=== PATIENT | female | born 1955 | race Caucasian/White ===

== ENCOUNTER → 2022-04-17 11:06 | Outpatient (CLI) | payer MEDICARE, SELFPAY ==
--- NOTE | 2022-04-17 11:06 | MM_ITS ---
PROCEDURE INFORMATION: Exam: MG Bilateral Screening 3D Mammography Exam date and time: 04/17/2022 11:05 AM Age: 66 years old Clinical indication: Screening. Personal history of lymphoma. A maternal aunt had breast cancer. TECHNIQUE: Imaging protocol: Bilateral Screening tomosynthesis and 2D mammography including computer-aided detection (CAD) when performed. COMPARISON: 1. MG DMSB DIG MAMM-SCREEN MARTÍNEZ W/CAD 02/21/2017 4:39 PM 2. MG DMSB DIG MAMM-SCREEN MARTÍNEZ 06/06/2015 10:26 AM 3. MG DMSB DIG MAMM-SCREEN MARTÍNEZ 04/21/2014 4:04 PM 4. MG DMSB DIG MAMM-SCREEN MARTÍNEZ 01/28/2013 4:57 PM FINDINGS: MAMMOGRAPHY: Breast composition: There are scattered areas of fibroglandular density. Mass: None. Architectural distortion: None. Calcifications: No suspicious calcifications. Asymmetric density: None. Skin thickening: None. Axillary adenopathy: None. IMPRESSION: No mammographic evidence of malignancy. Annual screening is recommended unless otherwise clinically indicated. ASSESSMENT: BI-RADS Category 1: Negative
== END ==
PROVIDERS: PCP Nurse Practitioner Family; Visit Provider Nurse Practitioner Obstetrics & Gynecology
DX: Z12.31 Encounter for screening mammogram for malignant neoplasm of breast (principal)
CPT/HCPCS: 77063; 77067

== ENCOUNTER → 2022-07-03 09:36 | Outpatient (CLI) | payer MEDICARE, SELFPAY ==
--- NOTE | 2022-07-03 09:41 | XR_ITS ---
FINAL REPORT CLINICAL HISTORY: COUGH,SPUTUM, pre op for left elbow surgery FINDINGS: TWO-VIEW CHEST Two views of the chest were obtained. The heart size and pulmonary vascularity are within normal limits. The mediastinum is normal. There are changes of emphysema. No acute pulmonary abnormality is identified. There is no pneumothorax. The bony thorax is intact. IMPRESSION: No acute process. Reviewed, Interpreted and Dictated by [place] MD Transcribed by Marie Linn Authenticated and [facility]
== END ==
PROVIDERS: PCP Internal Medicine; Visit Provider Internal Medicine
DX: R05.8 Other specified cough (principal)
CPT/HCPCS: 71046

== ENCOUNTER → 2022-12-19 12:41 | Outpatient (CLI) | payer MEDICARE, SELFPAY | PROVIDERS: PCP Internal Medicine Adolescent Medicine; Visit Provider Internal Medicine Pulmonary Disease | DX: R06.09 Other forms of dyspnea (principal) | CPT/HCPCS: 94060; 94618; 94726; 94729 ==

== ENCOUNTER 2023-05-18 19:44 | Emergency (ER) | payer MEDICARE, SELFPAY ==
[2023-05-18] VITALS (7 sets, daily range): BP systolic 112–136; BP diastolic 50–67; PULSE 70–130; RESP 14–20; TEMP 36.7–39.4; O2SAT 95–98; BMI 24.7
--- NOTE | 2023-05-18 20:05 | PC.NURSE ---
Covid and Flu swab obtained
--- NOTE | 2023-05-18 20:16 | CT_ITS ---
PROCEDURE INFORMATION: Exam: CT Abdomen And Pelvis With Contrast Exam date and time: 05/18/2023 8:38 PM Age: 67 years old Clinical indication: Abdominal pain; Additional info: Hematuria, backpain TECHNIQUE: Imaging protocol: Computed tomography of the abdomen and pelvis with contrast. Radiation optimization: All CT scans at this facility use at least one of these dose optimization techniques: automated exposure control; mA and/or kV adjustment per patient size (includes targeted exams where dose is matched to clinical indication); or iterative reconstruction. Contrast material: ISOVUE; Contrast volume: 75 ml; Contrast route: IV; REPORTING DATA: Count of CT and Cardiac NM exams in prior 12 months: This patient has received 0 known CTs and 0 known cardiac nuclear medicine studies in the 12 months prior to the current study. COMPARISON: CR XR CHEST 2V 07/03/2022 10:03 AM FINDINGS: Lungs: Mild atelectasis at the lung bases. Diaphragm: Tiny hiatal hernia. Liver: Normal. No mass. Gallbladder and bile ducts: Normal. No calcified stones. No ductal dilation. Pancreas: Mild fluid in the upper abdomen is predominantly adjacent to the pancreatic tail and is suspicious for acute pancreatitis. No evidence of pancreatic necrosis. Spleen: Normal. No splenomegaly. Adrenal glands: Normal. No mass. Kidneys and ureters: Punctate bilateral renal calyceal calculi measuring up to 0.2 cm. 2.4 cm simple cyst arising from the lateral mid left kidney. Subcentimeter low-density lesion in the left upper pole is too small to characterize. No hydronephrosis. No ureteral calculi. Stomach and bowel: Unremarkable. No obstruction. No mucosal thickening. Appendix: No evidence of appendicitis. Intraperitoneal space: Unremarkable. No free air. No significant fluid collection. Vasculature: Mild atherosclerotic disease without aneurysm. Lymph nodes: Unremarkable. No enlarged lymph nodes. Urinary bladder: Unremarkable as visualized. Reproductive: Unremarkable as visualized. Bones/joints: Hrod-br-uwhrfnad L5-S1 degenerative disc disease. Soft tissues: Unremarkable. IMPRESSION: 1. Mild fluid in the upper abdomen is predominantly adjacent to the pancreatic tail and is suspicious for acute pancreatitis. No evidence of pancreatic necrosis. 2. Punctate intrarenal calculi. No ureteral calculi or hydronephrosis.
--- NOTE | 2023-05-18 20:19 | HMH.EDGENADL ---
Discharge Plan Disposition Patient Disposition: Home, Self-Care Chief Complaint: Fever Prescriptions Prescriptions: No Action multivitamin Tablet 1 tab PO DAILY budesonide-formoterol [Symbicort] 160-4.5 mcg/actuation HFA aerosol inhaler 2 puff inhalation BID 90 Days Qty: 10.2 2RF azelastine 137 mcg (0.1 %) aerosol,spray 2 spray intranasal HS PRN (Reason: allergic symptoms) 90 Days Qty: 30 2RF Rx Instructions: administer into each nostril fluticasone propionate [Flonase Allergy Relief] 50 mcg/actuation spray,suspension 2 spray intranasal DAILY 90 Days Qty: 16 2RF Rx Instructions: administer into each nostril budesonide-formoterol [Symbicort] 160-4.5 mcg/actuation HFA aerosol inhaler 2 puff inhalation BID Brilinta 90 mg tablet 90 mg PO BID albuterol sulfate 90 mcg/actuation HFA aerosol inhaler 2 inh inhalation Q6H PRN (Reason: shortness of breath or wheezing) 90 Days Qty: 8.5 1RF doxycycline hyclate 100 mg capsule 100 mg PO BID 5 Days Qty: 10 0RF Referrals Follow up/Referrals: Saskia Marroquin APRN [Primary Care Provider] - See instructions Clinical Impressions Clinical Impression: Influenza A Discharge ED Provider: John Strauss General Adult HPI General Chief complaint: Fever Stated complaint: chills, back pain Time Seen by Provider: 05/18/23 19:47 Mode of Arrival: Ambulatory Source of Information: Spouse Limitations: No Limitations Description of Symptoms (Recalled from ER Triage Doc. by RN): pt had a bladder infection a month ago but was never properly treated [place], pt states she took 4 days worth of cipro and is now worried the infection has come back worse. over the last few days she has noted a fever and worsening back pain History of Present Illness HPI narrative: Patient is a 67-year-old female past medical history of ACS status post stenting, recurrent UTIs who presents emergency department for evaluation of low back pain. History is obtained by patient at bedside. Approximate 1 month ago patient was diagnosed urinary tract infection which was responsive to oral antibiotics. She was recently on a trip to [place] approximately 2 weeks ago where she had symptoms of dysuria and hematuria for 7 days, unfortunately patient was unable to access healthcare in [place] and upon return took ciprofloxacin for which symptoms have been refractory. She has now developed low back pain across her lumbar region which is associated with her hematuria. No significant frontal abdominal pain. Due to persistent symptoms she presents here for continued evaluation. Related Data Home Medications Medication Instructions Recorded Confirmed multivitamin 1 tab PO DAILY 05/18/21 04/22/23 budesonide-formoterol HFA 160 2 puff inhalation BID 10/30/22 04/22/23 mcg-4.5 mcg/actuation aerosol inhaler (Symbicort) ticagrelor 90 mg tablet (Brilinta) 90 mg PO BID 10/30/22 04/22/23 Previous Rx's Medication Instructions Recorded albuterol sulfate 90 mcg/actuation 2 inh inhalation Q6H PRN shortness 10/30/22 aerosol inhaler of breath or wheezing 90 days #8.5 grams azelastine 137 mcg (0.1 %) nasal 2 spray intranasal HS PRN allergic 04/22/23 spray aerosol symptoms 90 days #30 mL budesonide-formoterol HFA 160 2 puff inhalation BID 90 days 04/22/23 mcg-4.5 mcg/actuation aerosol #10.2 grams inhaler (Symbicort) fluticasone propionate 50 2 spray intranasal DAILY 90 days 04/22/23 mcg/actuation nasal #16 grams spray,suspension (Flonase Allergy Relief) doxycycline hyclate 100 mg capsule 100 mg PO BID 5 days #10 caps 05/05/23 Allergies Allergy/AdvReac Type Severity Reaction Status Date / Time No Known Allergies Allergy Verified 04/22/23 10:15 [facility] Disclaimer: The information contained in this section may have been updated after the patient was seen, as this information can be updated by other users. Medical History (R
[2023-05-18 20:22] LABS: Coronavirus 19, PCR Not Detected (NotDetected); Influenza B, PCR Not Detected (NotDetected)
[2023-05-18 20:22] LABS: Microscopic, Urine URINE MICROSCOPIC (MICROSCOPIC)
[2023-05-18 20:24] LABS: Appearance,Urine CLEAR (Clear); Bilirubin,Urine Negative (Negative); Blood, Urine TRACE-I (Negative); Color,Urine YELLOW (Yellow); Glucose,Urine (UA) Negative (Negative); Ketones,Urine Negative (Negative); Leukocyte Esterase,Urine TRACE (Negative); Nitrate,Urine Negative (Negative); PH,Urine 6.5 (5.0-8.5); Protein,Urine Negative (Negative); Specific Gravity, Urine 1.015 (1.005-1.030); Urobilinogen,Urine 0.2 EU/dl (0.2)
[2023-05-18 20:26] LABS: Basophils % 0.6 % (0.1-2.0); Eosinophils # 0.2 K/mm3 (0.0-0.4); Eosinophils % 2.7 % (0.1-12.0); Hematocrit 39.1 % (37.0-47.0); Hemoglobin 13.3 g/dL (12.2-16.2); Lymphocytes % 15.4 % (10-50); Mean Corpuscular HGB Conc 33.9 g/dL (31.8-35.4); Mean Corpuscular Hemoglobin 31.7 pg (27.0-31.2); Mean Corpuscular Volume 93.4 fl (81-99); Mean Platelet Volume 8.8 fl (7.4-10.4); Monocytes # 0.5 K/mm3 (0.1-1.0); Monocytes % 7.2 % (1.7-9.3); Neutrophils # 4.8 K/mm3 (1.8-7.8); Neutrophils % 74.1 % (37.0-80.0); Platelet Count 167 K/mm3 (142-424); Red Blood Count 4.19 M/mm3 (4.20-5.40); Red Cell Distribution Width 14.4 % (11.5-17.5); White Blood Count 6.5 K/mm3 (4.8-10.8)
[2023-05-18 20:27] LABS: Chloride 103 mmol/L (98-107); Potassium 4.1 mmoL/L (3.5-5.1); Sodium 136 mmol/L (136-145)
[2023-05-18 20:30] LABS: Alanine Aminotransferase 30 U/L (12-78); Albumin Level 4.3 g/dl (3.5-5.0); Albumin/Globulin Ratio 1.6 (1.1-1.8); Alkaline Phosphatase 82 U/L (38-126); Anion Gap 9.1 mEq/L (5-15); Aspartate Amino Transferase 41 U/L (14-36); Bilirubin,Total 0.3 mg/dl (0.2-1.3); Blood Urea Nitrogen 11 mg/dl (7-17); Calcium 8.6 mg/dl (8.4-10.2); Carbon Dioxide 28 mmol/L (22.0-30.0); Creatinine Clearance Estimated 59 mL/min (50-200); Estimated Glomerular Filt Rate 84 ml/min (>60); GFR (African American) 101 ML/MIN (>60); Globulin 2.7 g/dL (1.3-3.2); Glucose 119 mg/dl (74-100)
[2023-05-18 20:31] LABS: Lactic Acid 1.1 mmol/L (0.7-2.1)
[2023-05-18 20:42] LABS: Bacteria,Urine Trace /lpf; Squamous Epithelial Cell,Urine Occasional #/hpf (0-5)
[2023-05-18 20:45] LABS: Influenza A, PCR Detected (NotDetected)
--- NOTE | 2023-05-18 20:49 | ECG_ITS ---
APPROVED REPORT Exam: Resting ECG HR:123 bpm ECG Measurements Heart Rate 123 AXES AR 151 P 82 QRSd 91 QRS 77 QT 337 T 68 QTc 410 Conclusion SINUS TACHYCARDIA MINIMAL ST DEPRESSION [0.025+ mV ST DEPRESSION] ABNORMAL RHYTHM ECG UNCONFIRMED REPORT Electronically signed by : Solo Guy MD 05/19/2023 17:28:04
[2023-05-18 21:23] LABS: Troponin I < 0.01 ng/ml (0.00-0.034)
[2023-05-18 22:02] LABS: Lipase 46 U/L (23-300)
== END 2023-05-18 22:30 | disposition home or self-care (01) ==
PROVIDERS: Emergency Provider Emergency Medicine; PCP Nurse Practitioner Family
DX: J10.2 Influenza due to other identified influenza virus with gastrointestinal manifestations (principal); R50.9 Fever, unspecified; R00.0 Tachycardia, unspecified; M54.59 Other low back pain; R93.5 Abnormal findings on diagnostic imaging of other abdominal regions, including retroperitoneum; J45.909 Unspecified asthma, uncomplicated; R30.0 Dysuria
CPT/HCPCS: 74177; 80053; 81001; 83605; 83690; 84484; 85025; 87040; 87636; 93005; 96361; 96365; 96375; 99285; J0131; J2543; Q9967

== ENCOUNTER 2023-10-06 11:37 | Outpatient (CLI) | payer MEDICARE, SELFPAY ==
[2023-10-06 12:33] LABS: Anion Gap 8.2 mEq/L (5-15); Blood Urea Nitrogen 17 mg/dl (7-17); Carbon Dioxide 31 mmol/L (22.0-30.0); Chloride 105 mmol/L (98-107); Estimated Glomerular Filt Rate 83 ml/min (>60); GFR (African American) 101 ML/MIN (>60); Glucose 86 mg/dl (74-100); Potassium 5.2 mmoL/L (3.5-5.1); Sodium 139 mmol/L (136-145)
== END 2023-10-06 23:59 ==
LOC: LAB 11:39
PROVIDERS: PCP Internal Medicine Adolescent Medicine; Visit Provider Nurse Practitioner
DX: I50.22 Chronic systolic (congestive) heart failure (principal)
CPT/HCPCS: 36415; 80048

== ENCOUNTER 2023-12-03 14:20 | Outpatient (CLI) | payer MEDICARE, SELFPAY ==
--- NOTE | 2023-12-03 14:26 | MM_ITS ---
PROCEDURE INFORMATION: Exam: MG Bilateral Screening 3D Mammography Exam date and time: 12/03/2023 2:16 PM Age: 68 years old Clinical indication: Screening mammogram TECHNIQUE: Imaging protocol: Bilateral Screening tomosynthesis and 2D mammography including computer-aided detection (CAD) when performed. COMPARISON: 1. MG MM DIG SCREENING MAMM BI W/CAD 04/17/2022 11:05 AM 2. MG DMSB DIG MAMM-SCREEN MARTÍNEZ W/CAD 02/21/2017 4:39 PM 3. MG DMSB DIG MAMM-SCREEN MARTÍNEZ 06/06/2015 10:26 AM 4. MG DMSB DIG MAMM-SCREEN MARTÍNEZ 04/21/2014 4:04 PM FINDINGS: MAMMOGRAPHY: Breast composition: There are scattered areas of fibroglandular density. Mass: None. Architectural distortion: No new or suspicious architectural distortion. Calcifications: No new or suspicious calcifications are present Asymmetric density: No new or suspicious asymmetric density is present Skin thickening: None. Axillary adenopathy: None. IMPRESSION: No mammographic evidence of malignancy. Recommend annual screening mammography unless otherwise clinically indicated. ASSESSMENT: BI-RADS category 1: Negative.
--- NOTE | 2023-12-03 14:27 | XR_ITS ---
FINAL REPORT TECHNIQUE: Bone mineral density was calculated of the lumbar spine and hip. CLINICAL HISTORY: SCREENING FINDINGS: Using L1-4, the bone mineral density of the spine is 0.812 g/cm2, corresponding to T-score of -2.2. Using the left hip, the bone mineral density of the femoral neck is 0.697 g/cm2, corresponding to a T-score of -2.0. Using the right hip, the bone mineral density of the femoral neck is 0.669 g/cm2, corresponding to a T-score of -2.2. NOTE: T-score: Standard deviation compared with peak bone mass of young adult mean. *Following the recommendations of the International Society of Bone densitometry, classification of hip BMD is based on the lower of two T-scores; total hip or femoral neck. IMPRESSION: Diminished bone mineral density of the lumbar spine and hips consistent with low bone density. FRAX data reports fracture risk of 9.9% for major osteoporotic fracture and 1.3% for hip fracture. Reviewed, Interpreted and Dictated by Bienvenido Moses III, MD Transcribed by Geovanna Castillo Authenticated and [facility]
== END 2023-12-03 23:59 | disposition home or self-care (01) ==
LOC: RAD 14:21
PROVIDERS: PCP Nurse Practitioner Family; Visit Provider Nurse Practitioner Family
DX: Z12.31 Encounter for screening mammogram for malignant neoplasm of breast (principal); Z78.0 Asymptomatic menopausal state; M85.9 Disorder of bone density and structure, unspecified
CPT/HCPCS: 77063; 77067; 77080

== ENCOUNTER 2024-02-26 11:15 | Outpatient (CLI) | payer MEDICARE, SELFPAY ==
--- NOTE | 2024-02-26 11:23 | XR_ITS ---
FINAL REPORT CLINICAL HISTORY: ACUTE PAIN OF RIGHT FOOT COMPARISON: None FINDINGS: RIGHT FOOT Three views demonstrate no acute fracture or dislocation. The joint spaces appear normal. No acute soft tissue abnormality is seen. IMPRESSION: No acute process. Reviewed, Interpreted and Dictated by Santiago Woods MD Transcribed by Sariah Allen Authenticated and [facility]
--- NOTE | 2024-02-26 11:23 | XR_ITS ---
FINAL REPORT CLINICAL HISTORY: ACUTE PAIN IN RIGHT ANKLE COMPARISON: None FINDINGS: RIGHT ANKLE 3 views of the right ankle were obtained. There is no acute fracture or dislocation. The mortise is intact. Visualized joint spaces are normally aligned. Soft tissue swelling is noted about the ankle. IMPRESSION: Soft tissue swelling without acute bony abnormality. Reviewed, Interpreted and Dictated by Santiago Woods MD Transcribed by Sariah Allen Authenticated and [facility]
== END 2024-02-26 23:59 | disposition home or self-care (01) ==
LOC: RAD 11:17
PROVIDERS: PCP Internal Medicine Adolescent Medicine; Visit Provider Nurse Practitioner Family
DX: M79.671 Pain in right foot (principal); M25.571 Pain in right ankle and joints of right foot
CPT/HCPCS: 73610; 73630

== ENCOUNTER 2024-12-20 07:31 | Outpatient (CLI) | payer MEDICARE, SELFPAY ==
--- OUTSIDE RECORDS SUMMARY | 2024-10-02 17:30 | XMS_ITS ---
Author Organization [facility] Address [address] [facility] [address] [place] [address] Care Team Providers Care Diabetes Specialist Name Role Phone Shy Lu Primary Care Provider [phone] Shaka Miguel Unavailable Unavailable Migration, Provider Unavailable Unavailable REASON FOR VISIT [facility] To [facility] Conversion Encounter Medications Medication SIG (Take, Route, Frequency, Duration) Notes Start Date End Date Status Montelukast Sodium 10 MG 1 tab(s) orally once a day for 90 days 09/23/2022 Active Aspirin 81 MG 1 tab(s) orally once a day Active Farxiga 10 MG 1 tab(s) orally once a day Active Spironolactone 25 MG 1 tab(s) orally onc e a day Active Entresto 49-51 MG 1 tab(s) orally 2 ti mes a day Active Doxycycline Monohydrate 100 MG 1 cap(s) orally 2 times a day for 7 days 07/13/2024 Active Symbicort 160-4.5 MCG/ACT 2 puff(s) inha led 2 times a day for 30 days 09/23/2022 Active Encounters Encounter Location Date Provider Diagnosis [facility] [address] [facility] [address] [place] [address] 10/02/2024 Provider Migration Moderate persistent asthma with exacerbation J45.41 Assessments Encounter Date Diagnosis (ICD Code) Assessment Notes Treatment Notes Treatment Clinical Notes Section Notes 10/02/2024 Moderate persistent asthma with exacerbation (ICD-10 - J45.41) Plan Of Treatment Medication Medication Name Sig Start Date Stop Date Notes Doxycycline Monohydrate 100 MG 1 cap(s) orally 2 times a day for 7 days 07/13/2024 Progress Notes * Cortes KLEINAdoinsOB: 6 (69 yo F)Acc No.[id number]:10/02/2024 Patient: Robson VILLEDA Provider: Zarina Patino :1955 A ge:69 Y S ex:Female Date:10/02/2024 Address:[address] [place] [address] [id number] Pcp:Shy Lu Subjective: * Chief Complaints: * 1 . Multum To Medispan Conversion Encounter. * Medical History: * Medications: T aking Entresto 49-51 MG Tablet 1 tab(s) orally 2 times a day , Taking Spironolactone 25 MG Tablet 1 tab(s) orally once a day , Taking Farxiga 10 MG Tablet 1 tab(s) orally once a day , Taking Aspirin 81 MG Tablet Delayed Release 1 tab(s) orally once a day , Taking Montelukast Sodium 10 MG Tablet 1 tab(s) orally once a day , Taking Symbicort 160-4.5 MCG/ACT Aerosol 2 puff(s) inhaled 2 times a day Objective: * Vitals: Assessment: * Assessment: 1. M oderate persistent asthma with exacerbation - J45.41 (Primary) Plan: * Treatment: * * Electronic signature of Prov ider Migration on 12/20/2024 at 07:34 AM EDT Sign off status: Pending * Provider: Zarina iniguez Migration Date: 0 10/02/2024 Generated for Jorge hartley/Dayana/Annette on: 0 12/20/2024 07:34 AM EDT
--- NOTE | 2024-12-20 07:33 | CT_ITS ---
FINAL REPORT TECHNIQUE: IV contrast enhanced exam This study was performed with techniques to keep radiation doses as low as reasonably achievable, (ALARA). Individualized dose reduction techniques using automated exposure control or adjustment of mA and/or kV according to the patient''s size were employed. CLINICAL HISTORY: B-CELL LYMPHOMA OF LYMPH NODES COMPARISON: 05/19/2023 FINDINGS: Abdomen: The gallbladder is unremarkable. Liver has an unremarkable CT appearance. Spleen is at the upper limits of normal in size but stable at 11.5 cm. There are tiny, nonobstructing bilateral renal stones. A stable, exophytic left renal cyst is seen. Hypodensities are present posterior to the pancreatic body, similar to prior exam. These have an appearance most consistent with microcysts. There is no pancreatic parenchymal lesion. Remaining solid abdominal organs are without acute abnormality. No bowel obstruction or fluid collection is seen. Pelvis: The appendix is not visualized. Pelvic bowel loops are unremarkable. Uterus is normal for patient's age. No fluid collection or adenopathy is seen. IMPRESSION: No findings to indicate active disease related to lymphoma. Small cystic areas along the celiac axis and pancreatic body which are stable. Although of uncertain etiology, these are considered benign based on stability. Reviewed, Interpreted and Dictated by [place] MD Transcribed by Gaby Palomino Authenticated and [facility]
--- OUTSIDE RECORDS SUMMARY | 2024-12-20 07:35 | XMS_ITS | Clinical Summary ---
Author Organization [facility] Address [address] [place] [address] Care Team Providers Care Esthetics Instructor Name Role Phone Shirley Hernandez MD Unavailable [phone] Solo Guy MD Primary Care Provider [phone] Allergies Active Allergy Reactions Criticality Noted Date Comments Statins Other - please document in the comment field Low 06/11/2023 Pain , cramping Took atorvastatin, rosuvastatin Medications aspirin 81 MG EC tablet Take 1 tablet (81 mg) by mouth 1 (one) time each day. Active Symbicort 160-4.5 MCG/ACT inhaler Inhale 2 puffs 2 (two) times a day. Active fluticasone (Flonase) 50 MCG/ACT nasal spray Administer 2 sprays into each nostril if needed. 4 Active dapagliflozin (Farxiga) 10 MG tablet Take 1 tablet (10 mg) by mouth daily. 90 tablet 3 5 Active sacubitril-vals sameer (Entresto) 49-51 MG tablet Take 1 tablet by mouth 2 (two) times a day. 180 tablet 3 5 08/26/19 26 Active azelastine (Astelin) 0.1 % nasal spray USE 2 SPRAYS in each nostril AT BEDTIME NEEDED FOR allergic symptoms 4 Active metoprolol succinate XL (Toprol-XL) 25 MG 24 hr tablet Take 1 tablet by mouth daily. 90 tablet 3 5 Active spironolactone (Aldactone) 25 MG tablet Take 1 tablet by mouth daily. 90 tablet 3 5 Active Active Problems Problem Noted Date Diagnosed Date Cardiomyopathy, ischemic 11/05/2024 Myalgia due to statin 11/05/2024 Diffuse large B-cell lymphom a of lymph nodes of multiple regions 12/03/2022 Encounters Date Type Department Care Team Description 09/22/2024 Results Follow-Up [facility] [address] [place] [address] Nila Warner APRN 09/21/2024 3:20 PM EDT Office Visit [facility] [address] [facility], [address] [place] [address] Nila Warner APRN Chronic systolic HF (heart failure) (CMS/HCC) (Primary Dx); Coronary artery disease involving [place] coronary artery of [place] heart without angina pectoris 09/21/2024 Travel 09/20/2024 Telephone [facility] [address] [place] [address] Nila Warner APRN from Last 3 Months Social History Tobacco Use Types Packs/Day Years Used Date Smoking Tobacco: Never Smokeless Tobacco: Never Tobacco Cessation:Counseling Given: Not Answered Alcohol Use Standard Drinks/Week Comments Yes 1 (1 standard drink = 0.6 oz pur e alcohol) PHQ-2 Answer Date Recorded Patient Health Questionnaire-2 Score 0 09/21/2024 PHQ-9 Answer Date Recorded Patient Health Questionnaire-9 Score 0 09/21/2024 Comments No Sex and Gender Information Value Date Recorded Sex Assigned at Not on file Legal Sex Female 7:54 PM EDT Gender Identity Not on file Sexual Orientation Not on file Last Filed Vital Signs Vital Sign Reading Time Taken Comments Blood Pressure 118/74 09/21/2024 2:58 PM EDT Pulse 77 09/21/2024 2:58 PM EDT Temperature 36.5 C (97.7 F) 09/18/2023 10:49 PM EDT Respiratory Rate 18 09/18/2023 10:4 9 PM EDT Oxygen Saturation 95% 09/21/2024 2:58 PM EDT Inhaled Oxygen Concentration - - Weight 75.2 kg (165 lb 12.6 oz) 09/21/2024 2:58 PM EDT Height 165.1 cm (5' 5 ) 09/21/2024 2:58 PM EDT Body Mass Index 27.59 09/21/2024 2:58 PM EDT Plan of Treatment Upcoming Encounters Date Type Department Care Team (Late st Contact Info) Description 02/01/2025 3:20 PM EDT Office Visit [facility] [address] [facility], [address] [place] [address] Nila Warner, STATEMENT PROCESSOR [address] [place] [address] Health Maintenance Due Date Last Done Comments [facility]-Bone Density Scan 1955 [facility]-Medicare Annual Wellness (AWV) 1955 [facility]-/Child/Adol SDOH Screenings 1955 [id number]-24 Vaccine (#1) 1961 [facility]- SDOH Screenings 1974 [facility]-Adult SDOH Screenings 1974 [facility]-DTaP,Tdap,and Td Vaccines (1 - Tdap) 1975 [facility]-Pneumococcal Vaccine: 50+ Years (1 of 2 - PCV) 1975 [facility]-Zoster Vaccines (1 of 2) 1975 CT Colonography 2001 Colonoscopy 2001 FIT-DNA 2001 FIT 2001 FOBT 2001 Sigmoidoscopy 2001 [facility]-Colorectal Cancer Screening 2001 [facility]-Breast Cancer Screening 2006 [facility]-RSV Vaccine: 60+ Years or (1 - Risk 60-74 years 1-dose series) 2016 [facility]-Influenza Vaccine (Season Ended) 2025 [facility]-Depression Screening 09/21/2025 09/21/2024, 08/29 [facility]-Hepatitis C Screening Completed 09/18/2023 [facility]-Obesity Intervention Completed 025, 05/11/2024, 11/04/2023, Additional history exists HPV Vaccines Aged Out No longer eligi ble based on patient's age to complete this topic [facility]-HIB Vaccines Aged Out No longer e ligible based on patient's age to complete this topic [facility]-Hepatitis A Vaccines Aged Out No longer eligible based on patient's age to complete this topic [facility]-IPV Vaccines Aged Out No longer e ligible based on patient's age to complete this topic [facility]-Rotavirus Vaccines Aged Out No lo nger eligible based on patient's age to complete this topic Procedures Procedure Name Priority Date/Time Associated Diagnosis Comments BASIC METABOLIC PANEL, PLASMA Routine 09/21/2024 3:43 PM EDT Chronic systolic HF (heart failure) (CMS/HCC) HEPATITIS C ANTIBODY - ED W/REFLEX TO HCV QUANT PCR STAT 09/18/2023 6:55 PM EDT from Last 3 Months or Most Recently Relevant to Health Maintenance Results * (ABNORMAL) Basic Metabolic Panel, Plasma (09/21/2024 3:43 PM EDT) Glucose, Plasma 90 74 - 99 mg/dL 09/21/2024 5:38 PM EDT [facility] BUN, Plasma 24(H) 8 - 23 mg/dL 09/21/2024 5:38 PM EDT [facility] Creatinine, Plasma 0.61 0.60 - 1.10 mg/dL 09/21/2024 5:38 PM EDT [facility] BUN/Creatinine Ratio 39 09/21/2024 5:38 PM EDT [facility] Sodium, Plasma 139 136 - 145 mmol/L 09/21/2024 5:38 PM EDT [facility] Potassium, Plasma 4.6 3.6 - 4.9 mmol/L 09/21/2024 5:38 PM EDT [facility] Chloride, Plasma 104 97 - 107 mmol/L 09/21/2024 5:38 PM EDT [facility] CO2, Plasma 24 22 - 29 mmol/L 09/21/2024 5:38 PM EDT [facility] Anion Gap 11 6 - 16 mmol/L 09/21/2024 5:38 PM EDT [facility] Total Calcium, Plasma 9.3 8.9 - 10.2 mg/dL 09/21/2024 5:38 PM EDT [facility] eGFRcr 97.5 mL/min/1.7 3m*2 09/21/2024 5:38 PM EDT [facility] Comment:Reported eGFRcr in m L/min/1.73m2 is based the CKD-EPI 2020 equation that does not use a race coefficient. Blood Venous blood specimen / Unknown Venipuncture / Unknown 09/21/2024 3:43 PM EDT 09/21/2024 3:54 PM EDT us Nila Warner APRN LAB BLOOD ORDERABLES Final Result Performing Organization Address City/[facility]/ZIP Co de Phone Number [facility] [address] [place] [address] * Hepatitis C Antibody - ED (09/18/2023 6:55 PM EDT) [facility] Signature Hepatitis C Antibody Negative Negative 09/18/2023 8:14 PM EDT [facility] Blood Venous blood specimen / Unknown Venipuncture / Unknown 09/18/2023 6:55 PM EDT 09/18/2023 7:34 PM EDT us Maciel Garzon MD LAB BLOOD ORDERABLES Final Res ult [facility] [address] [place] [address] from Last 3 Months or Most Recently Relevant to Health Maintenance Insurance [address] [place] [address] [facility] MEDICARE Care Teams Esthetics Instructor Relationship Specialty Start Date End Date Solo Guy MD [address] [facility] [address] [place] [address] PCP - General Internal Medicine 06/11/23 Shirley Hernandez MD [address] [place] [address] Referring Physician Cardiology 06/09/23
--- OUTSIDE RECORDS SUMMARY | 2024-12-20 07:35 | XMS_ITS | Patient Health Record ---
Author Organization [facility] Address [address] [place] [address] Care Team Providers Care Vp Home Health Name Role Phone Shy Lu Primary Care Provider Shaka Miguel Unavailable Unavailable Saskia Marroquin Unavailable [phone] Migration, Provider Unavailable Unavailable Allergies No Known Allergies Results Component Value Reference Range Notes Rapid Covid/Flu A-B Combo Reviewed date:07/13/2024 01:28:47 PM Interpretation: Performing Lab: Notes/Report: Rapid Covid neg Flu A neg Flu B positive X ray : Ankle, Right Reviewed date:02/27/2024 09:56:44 AM Interpretation: Performing Lab: Notes/Report: X ray : Foot, Right Reviewed date:02/27/2024 09:56:44 AM Interpretation: Performing Lab: Notes/Report: X ray : Foot, Right Reviewed date:02/27/2024 09:56:44 AM Interpretation: Performing Lab: Notes/Report: Reason For Referral No Information Medications Medication SIG (Take, Route, Frequency, Duration) Notes Start Date End Date Status Montelukast Sodium 10 MG 1 tab(s) orally once a day for 90 days 09/23/2022 Active Aspirin 81 MG 1 tab(s) orally once a day Active Farxiga 10 MG 1 tab(s) orally once a day Active Spironolactone 25 MG 1 tab(s) orally once a day Active Entresto 49-51 MG 1 tab(s) orally 2 ti mes a day Active Macrobid 100 MG 1 capsule with food Orally every 12 hrs for 5 days 11/18/2024 Active Symbicort 160-4.5 MCG/ACT 2 puff(s) inha led 2 times a day for 30 days 09/23/2022 Active Social History Tobacco Use: Social History Observation Description Date Details (start date - stop date) Never Smoker NA - NA Smoking: Question Answer Notes Are you a: nonsmoker Problems Problem Type SNOMED Code ICD Code Onset Dates Problem Status W/U Status Risk Notes Problem 55315291 Coronary artery disease involving nooksack coronary artery of nooksack heart without angina pectoris (I25.10) Active confirmed Problem 080171624 Moderate persist ent asthma without complication (J45.40) Active confirmed Problem 690383702 History of basal cell cancer (Z85.828) Active confirmed Problem 952990718 Pure hypercholesterolemia (E78.00) Active confirmed Problem 691547442 Moderate persist ent asthma with exacerbation (J45.41) Active confirmed Problem 08885760 Chronic cough (R05.3) Active confirmed Problem 275462001 History of lymph jay (Z85.72) Active confirmed Vital Signs Heart Rate 8 /min 07/13/2024 Temperature 99.7 degrees Fahrenheit 07/13/2024 Blood pressure diastolic 74 mm Hg 07/13/2024 Height 65.5 in 07/13/2024 Blood pressure systolic 126 mm Hg 07/13/2024 Weight 162.8 lbs 07/13/2024 BMI 26.68 kg/m2 07/13/2024 Encounters Encounter Location Date Provider Diagnosis [facility] [address] [place] [address] 10/02/2024 Provider Migration Moderate persistent asthma with exacerbation J45.41 [facility] [address] [place], [place] [address] 02/26/2024 Saskia McNees Acute right ankle pain M25.571 and Acute pain of right foot M79.671 [facility] [address] [place], [place] [address] 07/13/2024 Saskia McNees Cough R05.9 ; Moderate persistent asthma with exacerbation J45.41 and Influenza B J10.1 [facility] [address] [place] [address] 02/26/2024 Saskia Lee [facility] [address] [address] 05/07/2024 Saskia Lee [facility] [address] [address] 11/18/2024 Shy Lu Moderate persistent asthma with exacerbation J45.41 Assessments Encounter Date Diagnosis (ICD Code) Assessment Notes Treatment Notes Treatment Clinical Notes Section Notes 07/13/2024 Moderate persistent asthma with exacerbation (ICD-10 - J45.41) Discussed the etiology and expected course of asthma exacerbation. Discussed the rationale for antibiotics and steroid use and the importance of completing the prescription as prescribed. Discussed supportive care. Discussed the signs and symptoms of worsening infection/respir atory distress that may indicate need for reassessment in clinic/ED. 07/13/2024 Cough (ICD-10 - R05.9) 10/02/2024 Moderate persistent asthma with exacerbation (ICD-10 - J45.41) 11/18/2024 Moderate persistent asthma with exacerbation (ICD-10 - J45.41) 02/26/2024 Acute right ankle pain (ICD-10 - M25.571) Rest, Ice, brace, elevate. FU in office in 2-3 weeks if symptoms persist 02/26/2024 Acute pain of right foot (ICD-10 - M79.671) 07/13/2024 Influenza B (ICD-10 - J10.1) Out of treatment window for tamiflu, see plan above Plan Of Treatment Pending Test Test Name Order Date BUN/CREATININE RATIO (296) 10/06/2023 CULTURE, URINE, ROUTINE (395) 07/11/2023 Insurance Providers Payer Name Payer Address Payer Phone Subscriber Number Group Number Insured Name Patient Relationship to Insured Coverage Start Date Coverage End Date [employer] HMO [address] [address] [place] [address] [id number] Robson Abrams Self - patient is the insured Medications Administered Medication Instructions Date of Administration Dosage Notes Dexamethasone 4mg Injection 07/13/2024 4 mg Medical (General) History Medical History History ICD Code CAD s/p stenting 2022 in [facility] Non-hodgkins lymphoma Asthma Surgical History Surgery Date(Month/Year) Heart Attack-one stent cyper knife-rt eye 2014 Hospitalization History Reason Date(Month/Year) Child tino x 4 Heart Attack
--- OUTSIDE RECORDS SUMMARY | 2024-12-20 07:35 | XMS_ITS | Encounter Summary ---
Author Organization [facility] Address [address] [place] [address] Care Team Providers Care Dot Compliance Coordinator Name Role Phone Shirley Hernandez MD Unavailable [phone] Solo Guy MD Primary Care Provider + [phone] Encounter Details Date Type Department Care Team (Late st Contact Info) Description 09/22/2024 Results Follow-Up [facility] [address] [facility] [place] [address] Nila Warner, LIVESTOCK AGENT [address] [place] [address] Social History Tobacco Use Types Packs/Day Years Used Date Smoking Tobacco: Never Smokeless Tobacco: Never Alcohol Use Standard Drinks/Week Comments [...] on file documented as of this encounter Plan of Treatment Upcoming Encounters Date Type Department Care Team (Late st Contact Info) Description 02/01/2025 3:20 PM EDT Office Visit [facility] [place] [address] [facility], [address] [place] [address] Alana, Nila J, LIVESTOCK AGENT [address] [place] [address] documented as of this encounter Visit Diagnoses Not on filedocumented in this encounter Additional Health Concerns Assessment Noted Time PHQ-9 Depression Total Score: 0 09/22/19 2:59 PM EDT A fall risk assessment has been complete d for the patient 09/21/2024 2:59 PM EDT A Body Mass Index follow-up plan has been documented for the patient 09/21/2024 3:54 PM EDT documented as of this encounter Care Teams Dot Compliance Coordinator Relationship Specialty Start Date End Date Solo Guy MD [address] [place] [address] PCP - General Internal Medicine 06/11/23 Shirley Hernandez MD [address] [place] [address] Referring Physician Cardiology 06/09/23 documented as of this encounter
--- OUTSIDE RECORDS SUMMARY | 2024-12-20 07:35 | XMS_ITS | Encounter Summary ---
Author Organization [facility] Address [address] [place] [address] Care Team Providers Care Lab Instructor Name Role Phone Shirley Hernandez MD Unavailable [phone] Solo Guy MD Primary Care Provider + [phone] Encounter Details Date Type Department Care Team (Late st Contact Info) Description 09/20/2024 Telephone [facility] [place] [facility] [address] [facility] [place] [address] Nila Warner, FOUNTAIN SERVER [address] [place] [address] Social History Tobacco Use Types [...] on file documented as of this encounter Functional Status * Over the past 2 weeks, how often have you been bothered by any of the following problems? Question Answer Date of Assessment Author Little interest or pleasure in doing things Not at all 09/21/2024 2:59 PM EDT Liz Raines Feeling down, depressed, or hopeless Not at all 09/21/2024 2:59 PM EDLiz Perales Patient Health Questionnaire -2 Score 0 09/21/2024 2:59 PM EDLiz Perales * Question Answer Date of Assessment Author Trouble falling or staying a sleep, or sleeping too much Not at all 09/21/2024 2:59 PM EDLiz Perales Feeling tired or having travis le energy Not at all 09/21/2024 2:59 PM EDLiz Perales Poor appetite or overeating Not at all 09/21/2024 2: 59 PM EDLiz Perales Feeling bad about yourself - or that you are a failure or have let yourself or your family down Not at all 09/21/2024 2:59 PM EDEricka Perales Trouble concentrating on thi ngs, such as reading the newspaper or watching television Not at all 09/21/2024 2:59 PM EDLiz Perales Moving or speaking so slowly that other people could have noticed? Or the opposite - being so fidgety or restless that you have been moving around a lot more than usual. Not at all 09/21/2024 2:59 PM Liz Tam Thoughts that you would be b mckayla off or hurting yourself in some way Not at all 09/21/2024 2:59 PM Liz Tam Patient Health Questionnaire -9 Score 0 09/21/2024 2:59 PM EDT Liz Raines * If you checked off any problems on this questionnaire so far, Question Answer Date of Assessment Author How difficult have these problems made it for you to do your work, take care of things at home, or get along with other people? Not difficult at all 09/21/2024 2:59 PM Liz Tam documented as of this encounter Plan of Treatment Upcoming Encounters Date Type Department Care Team ([facility] st Contact Info) Description 02/01/2025 3:20 PM EDT Office Visit [facility] [place] [address] [facility], [address] [place] [address] Nila Warner, FOUNTAIN SERVER [address] [place] [address] documented as of this encounter Visit Diagnoses Not on filedocumented in this encounter Additional Health Concerns Assessment Noted Time PHQ-9 Depression Total Score: 0 05/11/20 12:35 PM EST A fall risk assessment has been complete d for the patient 05/11/2024 12:37 PM EST A Body Mass Index follow-up plan has been documented for the patient 05/11/2024 1:20 PM EST documented as of this encounter Care Teams Lab Instructor Relationship Specialty Start Date End Date Solo Guy MD [facility] [address] [place] [address] PCP - General Internal Medicine 06/11/23 Shirley Hernandez MD [address] [place] [address] Referring Physician Cardiology 06/09/23 documented as of this encounter
[2024-12-20 08:06] LABS: Blood Urea Nitrogen 16 mg/dl (7-17); Estimated Glomerular Filt Rate 71 ml/min (>60); GFR (African American) 86 ML/MIN (>60)
--- NOTE | 2024-12-20 08:17 | CT_ITS ---
FINAL REPORT TECHNIQUE: After the administration of intravenous contrast, axial images through the chest were performed by computed tomography.This study was performed with techniques to keep radiation doses as low as reasonably achievable, (ALARA). Individualized dose reduction techniques using automated exposure control or adjustment of mA and/or kV according to the patient''s size were employed. CLINICAL HISTORY: B-CELL LYMPHOMA OF LYMPH NODES FINDINGS: There is no axillary adenopathy. There is no hilar or mediastinal adenopathy. The heart size is normal. There is no pericardial or pleural effusion. There is a small area of patchy airspace disease in the superior segment of the left lower lobe, favor inflammatory. IMPRESSION: No evidence of thoracic adenopathy. Small area of airspace disease in the superior segment of the left lower lobe which may represent active pneumonia or scarring. Reviewed, Interpreted and Dictated by [place] MD Transcribed by Gaby Palomino Authenticated and [facility]
[2024-12-20] MEDS: SODIUM CHLORIDE 0.9% 10ML SYR (RAD ONLY) 10 ML IV (08:49)
[2024-12-20] MEDS: IOPAMIDOL-370 (76%);100ML BOTTLE 75 ML IV (08:50)
== END 2024-12-20 23:59 | disposition home or self-care (01) ==
PROVIDERS: PCP Internal Medicine Adolescent Medicine; Visit Provider Internal Medicine
DX: C83.38 Diffuse large B-cell lymphoma, lymph nodes of multiple sites (principal); N20.0 Calculus of kidney; N28.1 Cyst of kidney, acquired
CPT/HCPCS: 36415; 71260; 74177; 82565; 84520; Q9967

== ENCOUNTER 2025-02-21 08:43 | Outpatient (CLI) | payer MEDICARE, SELFPAY ==
--- OUTSIDE RECORDS SUMMARY | 2024-12-07 08:15 | XMS_ITS | Encounter Summary ---
Author Organization [facility] Address [address] [place] [id number] Care Team Providers Care Knitted Garment Finisher Name Role Phone Solo Guy MD Primary Care Provider [phone] Reason for Referral * MRI/CAT/PET Scan (Routine) - Pending Review Specialty Diagnoses / Procedures Referred By Contac t Referred To Contact Diagnoses Diffuse large B-cell lymphoma of lymph nodes of multiple regions Procedures CT [place] [address] [place] [address] Phone: tel: fax: [facility] - OUTPT PHYSICAL THERAPY [address] [facility] [address] [place] [address] Phone: tel: fax: Referral ID Status Reason Start Date Expiration Date V isits Requested Visits Authorized [id number] Pending Review 12/07/2024 03/08/2026 1 1 * MRI/CAT/PET Scan (Routine) - Pending Review Specialty Diagnoses / Procedures Referred By Contac t Referred To Contact Diagnoses Diffuse large B-cell lymphoma of lymph nodes of multiple regions Procedures CT Abdomen Pelvis With Contrast Bijan York MD [address] [facility] [address] [place] [address] Phone: tel: fax: [facility] - OUTPT PHYSICAL THERAPY [address] [place] [address] Phone: tel: fax: Referral ID Status Reason Start Date Expiration Date V isits Requested Visits Authorized [id number] Pending Review 12/07/2024 03/08/2026 1 1 Encounter Details Date Type Department Care Team (Late st Contact Info) Description 12/07/2024 8:15 AM EDT Office Visit [facility] HEMATOLOGY & ONCOLOGY [address] [address] Bijan York MD [address] [address] Diffuse large B-cell lymphoma of lymph nodes of multiple regions (Primary Dx); Other fatigue Social History Tobacco Use Types Packs/Day Years Used Date Smoking Tobacco: Never Alcohol Use Standard Drinks/Week Comments Yes 1 (1 standard drink = 0.6 oz pur e alcohol) social PHQ-2 Answer Date Recorded Retired PHQ-9: Brief Depression Severity Measure Score 0 12/03/2022 PHQ-2 Answer Date Recorded Patient Health Questionnaire-9 Score 0 12/07/2024 Comments No Sex and Gender Information Value Date Recorded Sex Assigned at Not on file Legal Sex Female 1:38 PM EDT Gender Identity Not on file Sexual Orientation Not on file documented as of this encounter Last Filed Vital Signs Vital Sign Reading Time Taken Comments Blood Pressure 108/63 12/07/2024 8:24 AM EDT Pulse 71 12/07/2024 8:24 AM EDT Temperature 36.2 C (97.1 F) 12/07/2024 8:24 AM EDT Respiratory Rate 16 12/07/2024 8:24 AM EDT Oxygen Saturation 98% 12/07/2024 8:24 AM EDT Inhaled Oxygen Concentration - - Weight 74.8 kg (164 lb 12.8 oz) 12/07/2024 8:24 AM EDT Height 165.1 cm (5' 5 ) 12/07/2024 8:24 AM EDT Body Mass Index 27.42 12/07/2024 8:24 AM EDT documented in this encounter Functional Status documented as of this encounter Progress Notes * Bijan York MD - 12/07/2024 8:15 AM EDT Images from the original note were not included. Follow Up Office Visit Date: 12/07/2024 Patient Name: Robson Abrams : 1955 Referring Physician: Shy Lu Chief Complaint: Follow-up for DLBCL History of Present Illness: Robson Abrams is a pleasant 67 y.o. female past medical history of DLBCL, CAD who presents today for evaluation of DLBCL. The patient was initially diagnosed with a DLBCL in 2001. She is status post multiple rounds of chemotherapy including R-CHOP, single agent rituximab, R-CVP as well as radiation to the orbits bilaterally. She has not required any treatment since at least 2015. Extensive oncologic history noted in the external records from Dr. Smith on 02/19/2016. Notes that she had CT scans in [facility] in 2019 which did not show any evidence of disease. She denies any unexplained fevers, chills, night sweats, weight loss. Was recently diagnosed with a heart a ttack in July 2022. Had 1 stent placed and is currently follow with cardiology with overall stabilization Interval History: Presents to clinic for follow-up. Injured her ankle multiple times over the past year. This is caused her to be more sedentary. Has been having worsening fatigue and tiredness. Denies any swollen lymph nodes. Denies any night sweats Oncology History: Oncology/Hematology History No history exists. Subjective Review of Systems: Constitutional: Negative for fevers, chills, or weight loss Eyes: Negative for blurred vision or discharge Ear/Nose/Throat: Negative for difficulty swallowing, sore throat, LAD Respiratory: Negative for cough, SOA, wheezing Cardiovascular: Negative for chest pain or palpitations Gastrointestinal: Negative for nausea, vomiting or diarrhea Genitourinary: Negative for dysuria or hematuria Musculoskeletal: Negative for any joint pains or muscle aches Neurologic: Negative for any weakness, headaches, dizziness Hematologic: Negative for any easy bleeding or bruising Psychiatric: Negative for anxiety or depression Past Medical History/Past Surgical History/ Family History/ Social History: Reviewed by me and unchanged from my previous documentation done on November 2023. Medications: Current Outpatient Medications: albuterol sulfate HFA 108 (90 Base) MCG/ACT inhaler, As Needed., Disp: , Rfl: aspirin 81 MG EC tablet, Take 1 tablet by mouth Daily., Disp: , Rfl: dapagliflozin Propanediol (Farxiga) 10 MG tablet, Take 10 mg by mouth Daily., Disp: , Rfl: Entresto 49-51 MG tablet, Take 1 tablet by mouth 2 (Two) Times a Day., Disp: , Rfl: fluticasone (FLONASE) 50 MCG/ACT nasal spray, 2 sprays by Each Nare route As Needed., Disp: , Rfl: spironolactone (ALDACTONE) 25 MG tablet, Take 1 tablet by mouth Daily., Disp: , Rfl: Symbicort 160-4.5 MCG/ACT inhaler, INHALE TWO PUFFS BY MOUTH TWICE DAILY --RINSE MOUTH AFTER USE--,Disp: , Rfl: dapagliflozin Propanediol 10 MG tablet, Take 10 mg by mouth Daily. (Patient not taking: Reported on12/07/2024), Disp: , Rfl: losartan (Cozaar) 25 MG tablet, Take 1 tablet by mouth Daily for 30 days., Disp: 30 tablet, Rfl: 11 metoprolol succinate XL (TOPROL-XL) 25 MG 24 hr tablet, Take 1 tablet by mouth Daily for 30 days., Disp: 30 tablet, Rfl: 11 Allergies: Allergies Allergen Reactions Statins Other (See Comments) Pain , cramping Took atorvastatin, rosuvastatin Objective Physical Exam: Vital Signs: Vitals: 12/07/24823 BP: 108/63 Pulse: 71 Resp: 16 Temp: 97.1 ??F (36.2 ??C) TempSrc: Temporal SpO2: 98% Weight: 74.8 kg (164 lb 12.8 oz) Height: 165.1 cm (65 ) PainLoc: Comment: joint pain Pain Score 12/07/24823 PainLoc: Comment: joint pain ECOG Performance Status: 1 - Symptomatic but completely ambulatory Constitutional: NAD, ECOG 1 Eyes: PERRLA, scleral anicteric ENT: No LAD, no thyromegaly Respiratory: CTAB, no wheezing, rales, rhonchi Cardiovascular: RRR, no murmurs, pulses 2+ bilaterally Abdomen: soft, NT/ND, no HSM Musculoskeletal: strength 5/5 bilaterally, no c/c/e Neurologic: A&O x 3, CN II-XII intact grossly Results Review: Lab on 12/07/2024 Component Date Value Ref Range Status WBC 12/07/2024 7.29 3.40 - 10.80 10*3/mm3 Final RBC 12/07/2024 4.68 3.77 - 5.28 10*6/mm3 Final Hemoglobin 12/07/2024 14.4 12.0 - 15.9 g/dL Final Hematocrit 12/07/2024 44.1 34.0 - 46.6 % Final MCV 12/07/2024 94.2 79.0 - 97.0 fL Final MCH 12/07/2024 30.8 26.6 - 33.0 pg Final MCHC 12/07/2024 32.7 31.5 - 35.7 g/dL Final RDW 12/07/2024 13.2 12.3 - 15.4 % Final RDW-SD 12/07/2024 47.0 37.0 - 54.0 fl Final MPV 12/07/2024 9.9 6.0 - 12.0 fL Final Platelets 12/07/2024 180 140 - 450 10*3/mm3 Final Neutrophil % 12/07/2024 58.8 42.7 - 76.0 % Final Lymphocyte % 12/07/2024 26.1 19.6 - 45.3 % Final Monocyte % 12/07/2024 8.9 5.0 - 12.0 % Final Eosinophil % 12/07/2024 5.6 0.3 - 6.2 % Final Basophil % 12/07/2024 0.5 0.0 - 1.5 % Final Immature Grans % 12/07/2024 0.1 0.0 - 0.5 % Final Neutrophils, Absolute 12/07/2024 4.28 1.70 - 7.00 10*3/mm3 Final Lymphocytes, Absolute 12/07/2024 1.90 0.70 - 3.10 10*3/mm3 Final Monocytes, Absolute 12/07/2024 0.65 0.10 - 0.90 10*3/mm3 Final Eosinophils, Absolute 12/07/2024 0.41 (H) 0.00 - 0.40 10*3/mm3 Final Basophils, Absolute 12/07/2024 0.04 0.00 - 0.20 10*3/mm3 Final Immature Grans, Absolute 12/07/2024 0.01 0.00 - 0.05 10*3/mm3 Final No results found. Assessment / Plan Assessment/Plan: 1. Diffuse large B-cell lymphoma of lymph nodes of multiple regions (Primary) -Initially diagnosed in 2001 and status post multiple lines of therapy including R-CHOP, single agent rituximab, R-CVP as well as radiation to both orbits -Has not required any systemic chemotherapy since 2012 and her last radiation was in 2015. -Per patient, she is going to bring in her CT scan results from [facility] in 2019 for us to review -As she is currently asymptomatic and she has not had treatment in over 7 years, she does not require any surveillance imaging at this time -Labs in November 2022 reviewed and only notable for mildly elevated LDH however patient asymptomatic -Labs stable in November 2023 with a normal LDH -Labs pending today -Given her worsening fatigue and malaise, we will plan to check CT scans to rule out disease recurrence -Plan for repeat labs in 1 year. Ordered today 2. Other fatigue -Given her worsening fatigue, will check thyroid studies - TSH; Future - T4, Free; Future Follow Up: Follow-up in 1 year or sooner if needed Bijan York MD Hematology and Oncology Please note that portions of this note may have been completed with a voice recognition program. Efforts were made to edit the dictations, but occasionally words are mistranscribed. documented in this encounter Plan of Treatment Upcoming Encounters Date Type Department Care Team (Late st Contact Info) Description 12/06/2025 8:15 AM EDT Office Visit [facility] HEMATOLOGY & ONCOLOGY [address] [facility] [address] [place] [address] Bijan York MD [address] [place] [address] Scheduled Orders Name Type Priority Associated Diagnoses Orde r Schedule CBC & Differential Lab Panel Routine Diffuse large B-cell lymphoma of lymph nodes of multiple regions Expected: 12/07/2025 (Approximate), Expires: 12/07/2026 Comprehensive Metabolic Panel Lab Routine Diffuse large B-cell lymphoma of lymph nodes of multiple regions Expected: 12/07/2025 (Approximate), Expires: 12/07/2026 Lactate Dehydrogenase Lab Routine Diffuse large B-cell lymphoma of lymph nodes of multiple regions Expected: 12/07/2025 (Approximate), Expires: 12/07/2026 documented as of this encounter Procedures Procedure Name Priority Date/Time Associated Diagnosis Comments CT ABDOMEN PELVIS W CONTRAST Routine 12/20/2024 Diffuse large B-cell lymphoma of lymph nodes of multiple regions CT CHEST W CONTRAST Routine 12/20/2024 Diffuse large B-cell lymphoma of lymph nodes of multiple regions documented in this encounter Results * CT Chest With Contrast Diagnostic (12/20/2024) Anatomical Region Laterality Modality Chest N/A Computed Tomogra phy Bijan Yokr MD IMG CT ORDERABLES Final Resu lt * CT Abdomen Pelvis With Contrast (12/20/2024) Anatomical Region Laterality Modality Abdomen, Pelvis N/A Computed Tomogra phy Bijan York MD IMG CT ORDERABLES Final Resu lt * T4, Free (12/07/2024 8:21 AM EDT) Free T4 1.15 0.92 - 1.68 ng/dL 12/07/2024 9:23 AM EDT [facility] Blood Venipuncture / Unknown 12/07/2024 8:21 AM EDT 12/07/2024 8:21 AM EDT Bijan York MD LAB BLOOD ORDERABLES Final R esult Performing Organization Address City/[facility]/ZIP Co de Phone Number [facility]
[address] [place] [address], * TSH (12/07/2024 8:21 AM EDT) TSH 3.010 0.270 - 4.200 uIU/mL 12/07/2024 9:23 AM EDT [facility] Blood Venipuncture / Unknown 12/07/2024 8:21 AM EDT 12/07/2024 8:21 AM EDT Bijan York MD LAB BLOOD ORDERABLES Final R esult Performing Organization Address [facility] Co de Phone Number [facility]
[address] [place] [address], documented in this encounter Visit Diagnoses Diagnosis Diffuse large B-cell lymphoma of lymph nodes of multiple regions- Primary Other fatigue documented in this encounter Care Teams Knitted Garment Finisher Relationship Specialty Start Date End Date Solo Guy MD [address] [facility] [address] [facility] PCP - General Adolescent Medicine 11/14/22 documented as of this encounter
--- OUTSIDE RECORDS SUMMARY | 2025-02-01 15:20 | XMS_ITS | Encounter Summary ---
Author Organization [facility] Address [address] [place] [address] Care Team Providers Care Combustion Engineer Name Role Phone Shirley Hernandez MD Unavailable [phone] Solo Guy MD Primary Care Provider [phone] Reason for Referral * Consultation (Routine) - Authorized Specialty Diagnoses / Procedures Referred By Contac t Referred To Contact Diagnoses Cardiomyopathy, ischemic Nila Warner APRN [address] [place] [address] Phone: tel: fax: Referral ID Status Reason Start Date Expiration Date V isits Requested Visits Authorized [id number] Authorized 02/01/2025 08/03/2026 1 1 Encounter Details Date Type Department Care Team (Late st Contact Info) Description 02/01/2025 3:20 PM EDT Office Visit [facility] [address] [facility], [address] [place] [address] Nila Warner APRN [address] [place] [address] Cardiomyopathy, ischemic (Primary Dx); Chronic systolic HF (heart failure) (CMS/HCC); Coronary artery disease involving tatitlek coronary artery of tatitlek heart without angina pectoris Social History Tobacco Use Types Packs/Day Years Used Date Smoking Tobacco: Never Smokeless Tobacco: Never Alcohol Use Standard Drinks/Week Comments Yes 1 (1 standard drink = 0.6 oz pur e alcohol) PHQ-2 Answer Date Recorded Patient Health Questionnaire-2 Score 0 09/21/2024 PHQ-9 Answer Date Recorded Patient Health Questionnaire-9 Score 0 09/21/2024 AUDIT-C Answer Date Recorded Q1: How often do you have a drink containing alcohol? Never 02/01/2025 Q2: How many drinks containi ng alcohol do you have on a typical day when you are drinking? Patient does not drink Q3: How often do you have si x or more drinks on one occasion? Never 02/01/2025 Comments No Sex and Gender Information Value Date Recorded Sex Assigned at Not on file Legal Sex Female 7:54 PM EDT Gender Identity Not on file Sexual Orientation Not on file documented as of this encounter Last Filed Vital Signs Vital Sign Reading Time Taken Comments Blood Pressure 104/66 02/01/2025 3:09 PM EDT Pulse 70 02/01/2025 3:09 PM EDT Temperature - - Respiratory Rate - - Oxygen Saturation 99% 02/01/2025 3:09 PM EDT Inhaled Oxygen Concentration - - Weight 74.6 kg (164 lb 7.4 oz) 02/01/2025 3:09 P M EDT Height 166.4 cm (5' 5.5 ) 02/01/2025 3:09 PM EDT Body Mass Index 26.95 02/01/2025 3:09 PM EDT documented in this encounter Functional Status * AUDIT-C Score Answer Date of Assessment Author 0 02/01/2025 3:11 PM EDT Gabe Valverde * Question Answer Date of Assessment Author Q1: How often do you have a drink containing alcohol? Never 02/01/2025 3:11 PM EDT Marlene Valverde Q2: How many drinks containing alcohol do you have on a typical day when you are drinking? Patient does not drink 02/01/2025 3:11 PM EDT Marlene Valverde Q3: How often do you have six or more drinks on one occasion? Never 02/01/2025 3:11 PM EDT Marlene Valverde documented as of this encounter Miscellaneous Notes * Patient Instructions - Nila Warner APRN - 02/01/2025 3:20 PM EDT Move metoprolol to bedtime Increase fluids Don't start nicotine patch for pain 6 month follow up * Progress Notes - Nila Warner APRN - 02/01/2025 3:20 PM EDT Images from the original note were not included. Advanced Heart Failure Follow UP Note Robson Ramirez is a 69 y.o. female who presents for follow up of HFrEF. She has a history of Diffuse large B-cell lymphoma of lymph nodes of multiple regions (Primary) -Initially diagnosed in 2001, She is status post multiple rounds of chemotherapy including R-CHOP, single agent Rituximab, R-CVP as well as radiation to the orbits bilaterally, no chemo since 2012. She has not required any treatment since at least 2015. Cardiac history: NSTEMI and DUSTY to RCA in Jul 2022, LV gram at that time reported EF of 50%, followup ECHO in November 2022 LVEF noted to be 31-35%. ECHO repeated in Apr 2024 after meds optimized LVEF 45% Last seen in this clinic in August 2024. No hospital or ER visits, had pneumonia several months ago. No diuretics required, has gradually improved and doing well. No fevers, appetite is normal . States she does not feel like she is retaining any fluid. Reports a brief chest pain/pressure or tightness, occurred without provocation, did not radiate, occurred at rest. No symptoms like her pre SD symptoms. Has resumed regular exercise, walks on the treadmill 45 minutes at brisk pace. No tachycardia or palpitations. No syncope, occasional lightheadedness. Tolerating medical therapy of SGLT2i, MRA, BB and ARNI. Denies chest pain with exertion. Overall she is feeling very well. able to perform all ADLs, carries her 20 +pound grandchildren up stairs, etc. Finished cardiac rehab , Did not tolerate statins had significant leg pain and drawing of her hands on both Lipitor and Crestor at low doses, does not wish to try another statin. Denies PND/orthopnea/edema. eating healthy foods. Denies dizzy spells, syncope, tachycardia, early satiety or bloating, appetite is good. PMHX includes Cyber knife radiation for nonhodgkins lymphoma , R-CHOP, single agent Rituximab, R-CVP , she has followup with hem/onc in November. CARDIAC Coronary Artery Disease: NSTEMI in [facility] 07/2022: DUSTY to proximal RCA Myocardium: ` Reported EF 52% 07/2022 Echo 12/25/2022: EF 31-35%, dilated LV LVEF 04/2024 45% Review of symptoms 14 Point ROS reviewed and is otherwise negative except as per HPI. Past Medical History Past Medical History: Diagnosis Date SD (myocardial infarction) (CMS/HCC) 07/2022 Non Hodgkin's lymphoma 2001 Surgical History Past Surgical History: Procedure Laterality Date CATH STENT PLACEMENT/ CATH PLACEMENT OF STENT N/A 07/2022 DUSTY to RCA Family History family history is not on file. Social History reports that she has never smoked. She has never used smokeless tobacco. She reports current alcohol use of about 1.0 standard drink of alcohol per week. She reports that she does not use drugs. Medications Current Outpatient Medications Medication Sig Dispense Refill aspirin 81 MG EC tablet Take 1 tablet (81 mg) by mouth 1 (one) time each day. azelastine (Astelin) 0.1 % nasal spray USE 2 SPRAYS in each nostril AT BEDTIME NEEDED FOR allergic symptoms cholecalciferol (Vitamin D3) 10 MCG (400 UNIT) capsule Take by mouth daily. Cholecalciferol 400 Units/mL oral liquid Take by mouth daily. Cyanocobalamin (B12 LIQUID HEALTH BOOSTER PO) Take by mouth daily. dapagliflozin (Farxiga) 10 MG tablet Take 1 tablet (10 mg) by mouth daily. 90 tablet 3 fluticasone (Flonase) 50 MCG/ACT nasal spray Administer 2 sprays into each nostril if needed. magnesium aspartate (Maginex) 615 MG EC tablet Take 1 tablet by mouth daily. metoprolol succinate XL (Toprol-XL) 25 MG 24 hr tablet Take 1 tablet by mouth daily. 90 tablet 3 sacubitril-valsartan (Entresto) 49-51 MG tablet Take 1 tablet by mouth 2 (two) times a day. 180 tablet 3 spironolactone (Aldactone) 25 MG tablet Take 1 tablet by mouth daily. 90 tablet 3 Symbicort 160-4.5 MCG/ACT inhaler Inhale 2 puffs 2 (two) times a day. No current facility-administered medications for this visit. Physical Exam Constitutional: Appearance: Normal appearance. HENT: Head: Normocephalic and atraumatic. Cardiac: RRR, no MRG Pulmonary: Effort: Pulmonary effort is normal. Resp even /unlabored, no distress Abdomen: soft non tender, non distended Musculoskeletal: no edema Neurological: General: No focal deficit present. Mental Status: Alert and oriented to person, place, and time. Psychiatric: Mood and Affect: Mood normal. Behavior: Behavior normal. Visit Vitals BP 104/66 (BP Location: Right arm, Patient Position: Sitting, BP Cuff Size: Adult) Pulse 70 Ht 1.664 m (5' 5.5 ) Wt 74.6 kg (164 lb 7.4 oz) SpO2 99% BMI 26.95 kg/m?? Imaging Echo, Adult Transthoracic Complete Result Date: 05/11/2024 Left Ventricle: The left ventricle is normal size. There is normal left ventricular myocardial thickness and mass. No left ventricular mass or thrombus is seen. The left ventricular systolic functionis mildly reduced. The LVEF as measured by biplane volume is 45%. The diastolic function is abnormal. There is global hypokinesis of the left ventricle. Right Ventricle: The right ventricle is normalin size. The right ventricular systolic function is normal. The estimated global right ventricular systolic function based upon the TDI maximal systolic velocity is normal (>=9.5 cm/s). Compared to the most recently available prior study, and allowing for differences in image quality and technique, LVEF has improved. Pericardium: No pericardial effusion. Labs Lab Results Component Value Date HGB 14.4 12/07/2024 HCT 44.1 12/07/2024 PLT 180 12/07/2024 CHOL 197 11/04/2023 TRIG 67 11/04/2023 HDL 70 11/04/2023 LDLCALC 115 (H) 11/04/2023 ALT 13 12/07/2024 AST 18 12/07/2024 NA 140 12/07/2024 K 4.7 12/07/2024 CREATININE 0.74 12/07/2024 BUN 20.5 12/07/2024 CO2 24 09/21/2024 TSH 3.01 12/07/2024 BNP 1,280 (H) 06/11/2023 Assessment and Plan Chronic systolic HF: HFrEF, ICM, NYHA I, ECHO repeated : LVEF 45%, on ARNI, MRA, BB and SGLT21 METOPROLOL 25 MG DAILY, Continue SPIRONOLACTONE 25 MG ONCE DAILY, repeat labs today, last K mildly elevated, will have her modify her diet, cont FARXIGA 10 MG, DAILY. continue Entresto, 49/51 twice daily. she is compensated on exam. We reviewed the goals of therapy re meds, Coronary Artery Disease: NSTEMI in [facility] 08/13/2022: DUSTY to proximal RCA, remain on asa for life. Continue Metoprolol 25 mg mg EVERY DAY and SGLT2i 10 mg. She feels better on the Farxiga. did not tolerate statin and does not wish to take again. Was interested in trying nicotine patch for knee pain, advised against doing this due to CAD and potential for addiction. A total time of 40 minutes was spent in face to face encounter addressing the current illness, reviewing records (prior imaging, lab work, etc), and formulating a plan. The patient is agreeable to the plan and all pertinent questions were answered. Follow up in 6 months Nila Warner APRN 02/01/25 ` documented in this encounter Plan of Treatment Upcoming Encounters Date Type Department Care Team ([facility] st Contact Info) Description 08/09/2025 1:20 PM EST Office Visit [facility] [address] [facility], [address] [place] [address] Nila Warner APRN [address] [place] [address] Scheduled Referrals Name Type Priority Associated Diagnoses Order Schedule Follow Up Cardiology Outpatient Referral Routine Cardiomyopathy, ischemic Expected: 08/04/2025, Expires: 08/04/2026 documented as of this encounter Visit Diagnoses Diagnosis Cardiomyopathy, ischemic- Primary Other specified forms of chronic ischemic heart disease Chronic systolic HF (heart failure) (CMS/HCC) Chronic systolic heart failure Coronary artery disease involving tatitlek coronary artery of tatitlek heart without angina pectoris documented in this encounter Additional Health Concerns Assessment Noted Time PHQ-9 Depression Total Score: 0 09/22/19 2:59 PM EDT A fall risk assessment has been complete d for the patient 02/01/2025 3:18 PM EDT A Body Mass Index follow-up plan has been documented for the patient 02/01/2025 3:49 PM EDT documented as of this encounter Care Teams Combustion Engineer Relationship Specialty Start Date End Date Solo Guy MD [address] [place] [address] PCP - General Internal Medicine 06/11/23 Shirley Hernandez MD [address] [place] [address] Referring Physician Cardiology 06/09/23 documented as of this encounter
--- OUTSIDE RECORDS SUMMARY | 2025-02-10 05:30 | XMS_ITS ---
Author Organization [facility] YN[facility] D YO Address [address] [facility] [address] [facility] [address] [place] [address] Care Team Providers Care Restaurant Cashier Name Role Phone Shy Lu Primary Care Provider Shaka Miguel Unavailable Unavailable Saskia Marroquin Unavailable [phone] Allergies No Known Allergies Reason For Referral Reason CT renal mass protoc ol Diagnosis 1 Left renal mass (N28 .89) Referral Organization [facility] JACKELINE DEL VALLE Referring Provider First Name Saskia Referring Provider Last Name Lopez Referring Provider Speciality Family Pra ctice Referred Organization [facility] Referred Address [address] [place] [phone],[place] Referred Provider Specialty Diagnostic R adiology General Notes Marisabel Brush 2024 03:49:56 PM >Sent to [facility] to schedule Referral Priority Routine Reason [facility] mammogram Diagnosis 1 Visit for screening mammogram (Z12.31) Referral Organization [facility] JACKELINE DEL VALLE Referring Provider First Name Saskia Referring Provider Last Name Lopez Referring Provider Speciality Family Pra ctice Referred Organization [facility] Referred Address [address] [place] [phone], Referred Provider Specialty Diagnostic R adiology General Notes Marisabel Brush 2024 03:29:17 PM >sent to [facility] to schedule Referral Priority Routine REASON FOR VISIT AWV Medications Medication SIG (Take, Route, Frequency, Duration) Notes Start Date End Date Status Montelukast Sodium 10 MG 1 tab(s) orally once a day; Duration: 90 days 09/23/2022 Active Symbicort 160-4.5 MCG/ACT 2 puff(s) inha led 2 times a day; Duration: 30 days 09/23/2022 Active Aspirin 81 MG 1 tab(s) orally once a day Active Entresto 49-51 MG 1 tab(s) orally 2 ti mes a day Active Spironolactone 25 MG 1 tab(s) orally onc e a day Active Vitamin D3 50 MCG (1999 UT) 1 capsule Or ally Once a day Active Metoprolol Tartrate 25 MG 1 tablet Orally daily Active Farxiga 10 MG 1 tab(s) orally once a day Active Magnesium Glycinate Advanced 120 MG as directed Orally Active Social History Tobacco Use: Social History Observation Description Date Details (start date - stop date) Never Smoker NA - NA Smoking: Question Answer Notes Are you a: nonsmoker Problems Problem Type SNOMED Code ICD Code Onset Dates Problem Status W/U Status Risk Notes Problem Overweight (837493795) Overweight (E66.3) Active confirmed Problem Disorder of kidney and/or ureter (691619361) Left renal mass (N28.89) Active confirmed Problem Vitamin D deficiency (78165345) Vitamin D deficiency (E55.9) Active confirmed Vital Signs Temperature 97.3 degrees Fahrenheit 02/11/20 25 Blood pressure systolic 132 mm Hg 02/11/20 25 Blood pressure diastolic 86 mm Hg 025 Heart Rate 72 /min 02/10/2025 Height 65.5 in 02/10/2025 Weight 165 lbs 02/10/2025 BMI 27.04 kg/m2 02/10/2025 Encounters Encounter Location Date Provider Diagnosis [facility] YO [address] [facility] [address] [place], [place] [address] 02/10/2025 Saskia Marroquin Coronary artery dise ase involving [place] coronary artery of [place] heart without angina pectoris I25.10 ; Medicare annual wellness visit, subsequent Z00.00 ; History of lymphoma Z85.72 ; Moderate persistent asthma without complication J45.40 ; Pure hypercholesterolemia E78.00 ; Visit for screening mammogram Z12.31 ; History of basal cell cancer Z85.828 ; Overweight E66.3 ; Body mass index [BMI] 27.0-27.9, adult Z68.27 ; Left renal mass N28.89 and Vitamin D deficiency E55.9 Assessments Encounter Date Diagnosis (ICD Code) Assessment Notes Treatment Notes Treatment Clinical Notes Section Notes 02/10/2025 Coronary artery dise ase involving [place] coronary artery of [place] heart without angina pectoris (ICD-10 - I25.10) No acute angina. Continue aspirin. Goal to optimize blood pressure and LDL control. Recommend repatha due to statin intolerance, patient declines 02/10/2025 Medicare annual wellness visit, subsequent (ICD-10 - Z00.00) Mammogram past due, will arrange. Colonoscopy approx 10 years ago was normal. Recommend repeat. Patient is going to call back to schedule. Not a smoker. Declines pneumonia vaccine 02/10/2025 History of lymphoma (ICD-10 - Z85.72) Keep FU with oncology 02/10/2025 Moderate persistent asthma without complication (ICD-10 - J45.40) Well controlled on symbicort, no changes made today 02/10/2025 Pure hypercholesterolemia (ICD-10 - E78.00) See above, recommend repatha 02/10/2025 Visit for screening mammogram (ICD-10 - Z12.31) 02/10/2025 History of basal fercho l cancer (ICD-10 - Z85.828) Keep FU with Dr. Cunningham 02/10/2025 Overweight (ICD-10 - E66.3) 02/10/2025 Body mass index [BMI ] 27.0-27.9, adult (ICD-10 - Z68.27) Maximize activity, lean protein low saturated fat diet 02/10/2025 Left renal mass (ICD -10 - N28.89) Repeat CT scan, if no changes, no further scans will be needed 02/10/2025 Vitamin D deficiency (ICD-10 - E55.9) Will check vit d level and treat as indicated Plan Of Treatment Treatment Notes Assessment Notes Coronary artery disease invo [place]ving [place] coronary artery of [place] heart without angina pectoris No acute angina. Continue aspirin. Goal to optimize blood pressure and LDL control. Recommend repatha due to statin intolerance, patient declines Medicare annual wellness visit, subseque nt Mammogram past due, will arrange. Colonoscopy approx 10 years ago was normal. Recommend repeat. Patient is going to call back to schedule. Not a smoker. Declines pneumonia vaccine History of lymphoma Keep FU with onco logy Moderate persistent asthma without compl ication Well controlled on symbicort, no changes made today Pure hypercholesterolemia See above, rec ommend repatha History of basal cell cancer Keep YUNIER chilel h Dr. Cunningham Body mass index [BMI] 27.0-27.9, adult M aximize activity, lean protein low saturated fat diet Left renal mass Repeat CT scan, if n o changes, no further scans will be needed Vitamin D deficiency Will check vit d le trudy and treat as indicated Pending Test Test Name Order Date Mammogram : Bilateral 02/10/2025 CT Scan : Renal mass with contrast 02/10 Referrals Referral Date Details 02/10/2025 02/10/2025, CT renal mass protocol, [address] [place], [address], 02/10/2025 02/10/2025, [facility] mamm ogram, [address] [facility] [place], [address], Next Appt Details Follow Up: 6 Months,Maribell issa son: Progress Notes * Mere KLEINOB: 6 (69 yo F)Acc No.[id number]:02/10/2025 Progress Notes Patient: Robson VILLEDA Provider: Caroline Marroquin APRN :1955 A ge:69 Y S ex:Female Date:02/10/2025 Address:[address] [place] [address] [address] [facility] [place], [id number] Pcp:Shy Lu Subjective: * Chief Complaints: * 1 . AWV. * HPI: g en: 69-year-old female presents for annual Medicare Wellness/PAF exam. CAD- On aspirin, beta nicolás, Entresto, Farxiga and spironolactone. Denies CP, SOA or LE edema. Occasional orthostasis. Followed with [facility], seen a few weeks ago with only change was to take spironolactone at for orthostasis which has helped History of lymphoma- DX 2001. Follows with oncology annually Asthma- well controlled on Symbicort and Singulair. No SOA or chest congestion Hyperlipidemia- Has failed statins in the past due to myalgias. She is hesitant to try any more statin. Discussed Repatha which was recommended by cardiology. She declines Renal cyst- incidental finding on CT in ED last year. Renal mass protocol stable in 2023, due to repeat Feels fatigued despite 8 hours of sleep a night. Intermittent snoring. Mammogram- 2023 normal. C-scope 10 year ago normal. DEXA Scan UTD. Does not take vaccines. * ROS: A LLERGY: no R unny nose. n o S cratchy throat. n o S inus congestion. F UNCTIONAL STATUS: ADLS I ndependent for all ADL/IADL. R ESPIRATORY: no S hortness of breath. n o C hest congestion.?no C ough. C ARDIOLOGY: Dizziness y es, w hile getting up from sitting position. n o C hest pain. n o P alpitations. n o L eg edema. C ONSTITUTIONAL: no L oss of appetite. n o F ever. n o W eakness. F atigue yes. D ERMATOLOGY: no R jimmie. E NDOCRINOLOGY: no F atigue. n o W eight loss. n o D iabetes. G ASTROENTEROLOGY: no V omiting. n o A bdominal pain. n o D iarrhea. n o C onstipation. H EMATOLOGY/LYMPH: no S wollen glands. N EUROLOGY: no H eadache. n o M castillo loss. n o D izziness. P SYCHOLOGY: no D epression. n o S leep disturbances. n o?Anxiety. U ROLOGY: Reviewed, No Symptoms Reported: Y es. * Medical History: C AD s/p stenting 2022 in [place], Non-hodgkins lymphoma, Asthma. * Surgical History: H eart Attack-one stent , cyper knife-rt eye 2013. * Hospitalization/Major Diagno stic Procedure: H eart Attack , Child brith x 4 . * Family History: F ather: , Alzheimer's dementia. M other: alive, neuropathy. P aternal Grand Father: . P aternal Grand Mother: . M aternal Grand Father: . M aternal Grand Mother: . P aternal uncle: . P aternal aunt: alive, some aunts . M aternal uncle: . M aternal aunt: . S iblings: alive. C sierra: alive. 4 brother(s) - healthy. 1 son(s) , 3 daughter(s) - healthy. . * Social History: S moking A re you a: n onsmoker. R ecreational drug use: no. Exercise: yes. Home smoke detector use: yes. Caffeine: yes, frequency:c offee, diet coke, tea. Living Will: No. Alcohol: socially, Type: , Frequency: ,Years: , Determination:. Travel outside [place]: yes, [place]. 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 * Medications: T aking Magnesium Glycinate Advanced 120 MG Capsule as directed Orally , Taking Vitamin D3 50 MCG (2000 UT) Capsule 1 capsule Orally Once a day , Taking Metoprolol Tartrate 25 MG Tablet 1 tablet Orally daily , Taking Entresto 49-51 MG Tablet 1 tab(s) orally [...] 2 puff(s) inhaled 2 times a day , Discontinued Amoxicillin-Pot Clavulanate 875-125 MG Tablet 1 tablet Orally every 12 hrs , Discontinued Promethazine-DM 6.25-15 MG/5ML Syrup 5 mL as needed Orally every 6 hrs As needed, Discontinued Diflucan 150 MG Tablet 1 tablet Orally today and repeat in 3 days , Discontinued levoFLOXacin 750 MG Tablet 1 tablet Orally Once a day , Medication List reviewed and reconciled with the patient * Allergies: N .K.D.A. Objective: * Vitals: N urse: be, Pain: 0, Temp: 97.3, RR: 16, HR: 72, BP: 132/86, Ht: 65.5, Wt: 165, BMI:27.04. * Examination: G eneral Examination: General P leasant and Cooperative, NAD on RA,. Oral cavity: M oist membranes. Chest: n ormal shape and expansion. Heart: R egular Rate and Rhythm, no murmur, rubs or gallops. Lungs: L CTAB, No wheezes, crackles or rhonchi, Good air movement,. Abdomen: S oft, NTND, BSNA, No organomegaly or peritoneal signs.. Neurologic Exam: n o focal signs,, normal sensation, strength, Alert and oriented x 3. Skin: w ithout acute rashes. Peripheral pulses: n ormal (2+) bilaterally. Back: n ormal,. Extremities: n ormal ROM,, no clubbing, no edema,, no foot lesions,. neck s upple,, no thyromegaly,, no lymphadenopathy, No Carotid Bruit, . Psych N ormal Mood/Affect. Assessment: * Assessment: [facility]. [facility], subsequent - Z00.00 (Primary) 2 . C oronary artery disease involving [place] coronary artery of [place] heart without angina pectoris - I25.10 3 . H istory of lymphoma - Z85.72 4 . M oderate persistent asthma without complication - J45.40 5 . P ure hypercholesterolemia - E78.00? 6. V isit for screening mammogram - Z12.31 7 . H istory of basal cell cancer - Z85.828 8 . O verweight - E66.3 9 . B kimber mass index [BMI] 27.0-27.9, adult - Z68.27 1 0. L eft renal mass - N28.89 ? 1 1. V itamin D deficiency - E55.9 Plan: * Treatment: 2. C oronary artery disease involving [place] coronary artery of [place] heart without angina pectoris Notes: No acute angina. Continue aspirin. Goal to optimize blood pressure and LDL control. Recommend repatha due to statin intolerance, patient declines 3. H istory of lymphoma Notes: Keep FU with oncology 4. M oderate persistent asthma without complication Notes: Well controlled on symbicort, no changes made today 5. P ure hypercholesterolemia Notes: See above, recommend repatha 6. V isit for screening mammogram I maging: Mammogram : Bilateral ? Referral To: ?Reason:[facility] mammogram 7.?History of basal cell cancer? Notes: Keep FU with Dr. Cunningham??8.?Body mass index [BMI] 27.0-27.9, adult? Notes: Maximize activity, lean protein low saturated fat diet??9.?Left renal mass?Imaging: CT Scan : Renal mass with contrast* Notes: Repeat CT scan, if no changes, no further scans will be needed?& #160;? Referral To: ?Reason:CT renalmass protocol 10.?Vitamin D deficiency? Notes: Will check vit d level and treat as indicated?? * Procedure Codes: 9 6160 HEALTH RISK SOWWM-OE-SDGSCON, G0439 ANNUAL WELLNESS VST; PPS SUBSQT VST, G9899 Screening diagnostic,film,digital results documented and reviewed, 3017F COLORECTAL CA SCREEN DOC REV, G8420 BMI documented as normal, no follow up required., G8510 NEGATIVE SCREENING F/U NOT REQUIRED, G9903 Pt scrn tbco id as non user, 1036F TOBACCO NON-USER, G8783 NORMAL BP READING DOC F/U NOT RQR * Follow Up: 6 Months,prn * * Sign off status: Completed true * Provider: Caroline Marroquin APRN Date: 0 02/10/2025 Generated for Jorge hartley/Dayana/Fabianoitting on: 0 02/21/2025 08:49 AM EDT History and Physical Notes * HPI (History of Present Illness) Category Sub-Category Detail Notes Category Not es gen 69-year-old female presents for annual Medicare Wellness/PAF exam. CAD- On aspirin, beta nicolás, Entresto, Farxiga and spironolactone. Denies CP, SOA or LE edema. Occasional orthostasis. Followed with [facility], seen a few weeks ago with only change was to take spironolactone at for orthostasis which has helped History of lymphoma- DX 2001. Follows with oncology annually Asthma- well controlled on Symbicort and Singulair. No SOA or chest congestion Hyperlipidemia- Has failed statins in the past due to myalgias. She is hesitant to try any more statin. Discussed Repatha which was recommended by cardiology. She declines Renal cyst- incidental finding on CT in ED last year. Renal mass protocol stable in 2023, due to repeat Feels fatigued despite 8 hours of sleep a night. Intermittent snoring. Mammogram- 2023 normal. C-scope 10 year ago normal. DEXA Scan UTD. Does not take vaccines. Examination Category Sub-Category Detail Notes Category Not es General Examination HEENT: Heart: Regular Rate and Rhy thm, no murmur, rubs or gallops Lungs: LCTAB, No wheezes, c rackles or rhonchi, Good air movement, Abdomen: Soft, NTND, BSNA, No organomegaly or peritoneal signs. Extremities: normal ROM,, no club henrry, no edema,, no foot lesions, Skin: without acute rashes Neurologic Exam: no focal signs,, nor mal sensation, strength, Alert and oriented x 3 Oral cavity: Moist membranes Peripheral pulses: normal (2+) bilatera lly Back: normal, Chest: normal shape and exp ansion neck supple,, no thyromeg jonel,, no lymphadenopathy, No Carotid Bruit, General Pleasant and Coopera tive, NAD on RA, Psych Normal Mood/Affect Consultation Request Notes Referral Date Referring Provider Referred Provider Not es 02/10/2025 Saskia Marroquin , CT renal mass protocol 02/10/2025 Saskia Marroquin , [facility] mammogram
--- OUTSIDE RECORDS SUMMARY | 2025-02-10 11:34 | XMS_ITS ---
Author Organization [facility] Address [address] [facility] [address] [facility] [address] [place] [address] Care Team Providers Care Neurological Surgeon Name Role Phone Shy Lu Primary Care Provider Shaka Miguel Unavailable Unavailable Saskia Marroquin Unavailable [phone] REASON FOR VISIT orders Encounters Encounter Location Date Provider Diagnosis [facility] [address] [facility] [address] [facility] [address] [place] [address] 02/10/2025 Saskia Marroquin Left renal mass N28.89 Assessments Encounter Date Diagnosis (ICD Code) Assessment Notes Treatment Notes Treatment Clinical Notes Section Notes 02/10/2025 Left renal mass (ICD-10 - N28.89) Plan Of Treatment Pending Test Test Name Order Date CT ABD WOW 02/10/2025 Progress Notes * Mere KLEINOB: 6 (69 yo F)Acc No.[id number]:02/10/2025 Patient: Robson VILLEDA :1955 A ge:69 Y S ex:Female Address:[address] [place] [address] [place] [address] Subjective: * Chief Complaints: * O rders * Medical History: * Surgical History: * Hospitalization/Major Diagno stic Procedure: * Medications: Objective: * Vitals: * Physical Examination: Assessment: * Assessment: 1. L eft renal mass - N28.89 Plan: * Treatment: * * Procedure Codes: * true * Date: Generated for Jorge hartley/Dayana/Annette on: 0 02/21/2025 08:49 AM EDT
--- OUTSIDE RECORDS SUMMARY | 2025-02-21 08:48 | XMS_ITS | Clinical Summary ---
Author Organization [facility] Address [address] [place] [id number] Care Team Providers Care High Value Associate Name Role Phone Solo Guy MD Primary Care Provider [phone] Allergies Active Allergy Reactions Criticality Noted Date Comments Statins Other (See Comments) Low 06/11/2023 Pain , cramping Took atorvastatin, rosuvastatin Medications albuterol sulfate HFA 108 (90 Base) MCG/ACT inhaler As Needed. 10/30/2022 Ac tive Symbicort 160-4.5 MCG/ACT inhaler INHALE TWO PUFFS BY MOUTH TWICE DAILY --RINSE MOUTH AFTER USE-- 09/24/2022 Active fluticasone (FLONASE) 50 MCG/ACT nasal spray 2 sprays by Each Nare route As Needed. 10/30/2022 Active aspirin 81 MG EC tablet Take 1 tablet by mouth Daily. Active metoprolol succinate XL (TOPROL-XL) 25 MG 24 hr tablet Take 1 tablet by mouth Daily for 30 days. 30 tablet 11 11/14/2022 Active losartan (Cozaar) 25 MG tablet Take 1 tablet by mouth Daily for 30 days. 30 tablet 11 11/14/2022 Active dapagliflozin Propanediol 10 MG tablet Take 10 mg by mouth Daily. 09/24/2023 Active spironolactone (ALDACTONE) 25 MG tablet Take 1 tablet by mouth Daily. Active Entresto 49-51 MG tablet Take 1 tablet by mouth 2 (Two) Times a Day. Active dapagliflozin Propanediol (Farxiga) 10 MG tablet Take 10 mg by mouth Daily. 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 [address] [place] [phone] Bijan York MD Diffuse large B-cell lymphoma of lymph nodes of multiple regions (Primary Dx); Other fatigue 12/07/2024 Travel from Last 3 Months Family History Medical History Relation Name Comments No Known Problems Brother No Known Problems Father Atrial fibrillation Mother Hypertension Mother Stroke Mother Relation Name Status Comments Brother Father Mother Alive Social History Tobacco Use Types Packs/Day Years Used Date Smoking Tobacco: Never Tobacco Cessation:Counseling Given: Not Answered [...] Mass Index 27.42 12/07/2024 8:24 AM EDT Plan of Treatment Upcoming Encounters Date Type Department Care Team (Late st Contact Info) Description 12/06/2025 8:15 AM EDT Office Visit [facility] [address] [facility] [address] [place] [address] Bijan York MD [address] [facility] [address] [place] [address] Health Maintenance Due Date Last Done Comments DXA SCAN 1955 COVID-19 Vaccine (#1) 1961 Pneumococcal Vaccine 50+ (1 of 2 - PCV) 1975 TDAP/TD VACCINES (1 - Tdap) 1975 ZOSTER VACCINE (1 of 2) 1975 MAMMOGRAM 1996 COLOGUARD 2001 COLON CANCER SCREENING 5 YEA R SIGMOIDOSCOPY 2001 COLONOSCOPY 2001 COL[address]AL CANCER SCREENING 2001 CT COLONOGRAPHY 2001 FECAL OCCULT BLOOD TEST 2001 FIT Testing (1 year) 2001 ANNUAL WELLNESS VISIT 10/22/2022 LIPID PANEL 11/03/2024 11/04/2023, 05/0 12/2023, 02/20/2023, Additional history exists INFLUENZA VACCINE 03/30/2025 HEPATITIS C SCREENING Completed 09/18/2023 Procedures Procedure Name Priority Date/Time Associated Diagnosis Comments CT ABDOMEN PELVIS W CONTRAST Routine 12/20/2024 Diffuse large B-cell lymphoma of lymph nodes of multiple regions CT CHEST W CONTRAST Routine 12/20/2024 Diffuse large B-cell lymphoma of lymph nodes of multiple regions CBC AND DIFFERENTIAL Routine 12/07/2024 8:21 AM EDT Diffuse large B-cell lymphoma of lymph nodes of multiple regions TSH Routine 12/07/2024 8:21 AM EDT Other fatigue T4, FREE Routine 12/07/2024 8:21 AM EDT Other fatigue CBC WITH AUTO DIFFERENTIAL Routine 12/07/2024 8:21 AM EDT Diffuse large B-cell lymphoma of lymph nodes of multiple regions LACTATE DEHYDROGENASE Routine 12/07/2024 8:21 AM EDT Diffuse large B-cell lymphoma of lymph nodes of multiple regions COMPREHENSIVE METABOLIC PANEL Routine 12/07/2024 8:21 AM EDT Diffuse large B-cell lymphoma of lymph nodes of multiple regions LIPID PANEL Routine 02/20/2023 12:20 PM EDT Coronary artery disease involving creek coronary artery of creek heart without angina pectoris from Last 3 Months or Most Recently Relevant to Health Maintenance Results * CT Abdomen Pelvis With Contrast (12/20/2024) Anatomical Region Laterality Modality Abdomen, Pelvis N/A Computed Tomogra phy Bijan York MD [facility] CT ORDERABLES Final Resu lt * CT Chest With Contrast Diagnostic (12/20/2024) Anatomical Region Laterality Modality Chest N/A Computed Tomogra phy Bijan York MD [facility] CT ORDERABLES Final Resu lt * (ABNORMAL) CBC Auto Differential (12/07/2024 8:21 AM EDT) WBC 7.29 3.40 - 10.80 10*3/mm3 12/07/2024 8:28 AM EDT [facility] RBC 4.68 3.77 - 5.28 10*6/mm3 12/07/2024 8:28 AM EDT [facility] Hemoglobin 14.4 12.0 - 15.9 g/dL 12/07/2024 8:28 AM EDT [facility] Hematocrit 44.1 34.0 - 46.6 % 12/07/2024 8:28 AM EDT [facility] MCV 94.2 79.0 - 97.0 fL 12/07/2024 8:[facility] MCH 30.8 26.6 - 33.0 pg 12/07/2024 8:[facility] MCHC 32.7 31.5 - 35.7 g/dL 12/07/2024 8:28 [facility] RDW 13.2 12.3 - 15.4 % 12/07/2024 8:28 [facility] RDW-SD 47.0 37.0 - 54.0 fl 12/07/2024 8:28 AM [facility] MPV 9.9 6.0 - 12.0 fL 12/07/2024 8:28 AM [facility] Platelets 180 140 - 450 10*3/mm3 12/07/2024 8:28 AM [facility] Neutrophil % 58.8 42.7 - 76.0 % 12/07/2024 8:28 [facility] Lymphocyte % 26.1 19.6 - 45.3 % 12/07/2024 8:28 AM [facility] Monocyte % 8.9 5.0 - 12.0 % 12/07/2024 8:28 AM [facility] Eosinophil % 5.6 0.3 - 6.2 % 12/07/2024 8:28 [facility] Basophil % 0.5 0.0 - 1.5 % 12/07/2024 8:28 [facility] Immature Grans % 0.1 0.0 - 0.5 % 12/07/2024 8:28 [facility] Neutrophils, Absolute 4.28 1.70 - 7.00 10*3/mm3 12/07/2024 8:28 [facility] Lymphocytes, Absolute 1.90 0.70 - 3.10 10*3/mm3 12/07/2024 8:28 [facility] Monocytes, Absolute 0.65 0.10 - 0.90 10*3/mm3 12/07/2024 8:28 AM EDT [facility] Eosinophils, Absolute 0.41(H) 0.00 - 0.40 10*3/mm3 12/07/2024 8:28 AM EDT [facility] Basophils, Absolute 0.04 0.00 - 0.20 10*3/mm3 12/07/2024 8:28 AM EDT [facility] Immature Grans, Absolute 0.01 0.00 - 0.05 10*3/mm3 12/07/2024 8:28 AM EDT [facility] Blood Venipuncture / Unknown 12/07/2024 8:21 AM EDT 12/07/2024 8:21 AM EDT Bijan York MD LAB BLOOD ORDERABLES Final R esult [facility]
[address] [place] [address], * TSH (12/07/2024 8:21 AM EDT) Pathologist [facility] TSH 3.010 0.270 - 4.200 uIU/mL 12/07/2024 9:23 AM EDT [facility] Blood Venipuncture / Unknown 12/07/2024 8:21 AM EDT 12/07/2024 8:21 AM EDT Bijan York MD LAB BLOOD ORDERABLES Final R esult [facility]
[address] [place] [address], * T4, Free (12/07/2024 8:21 AM EDT) Free T4 1.15 0.92 - 1.68 ng/dL 12/07/2024 9:23 AM EDT [facility] Blood Venipuncture / Unknown 12/07/2024 8:21 AM EDT 12/07/2024 8:21 AM EDT Bijan York MD LAB BLOOD ORDERABLES Final R esult Performing Organization Address City/[facility]/ZIP Co de Phone Number [facility]
[address] [place] [address], * Lactate Dehydrogenase (12/07/2024 8:21 AM EDT) LDH 167 135 - 214 U/L 12/07/2024 9:19 AM EDT [facility] Blood Venipuncture / Unknown 12/07/2024 8:21 AM EDT 12/07/2024 8:21 AM EDT Bijan York MD LAB BLOOD ORDERABLES Final R esult Performing Organization Address City/[facility]/ZIP Co de Phone Number [facility]
[address] [place] [address], * (ABNORMAL) Comprehensive Metabolic Panel (12/07/2024 8:21 AM EDT) Glucose 93 65 - 99 mg/dL 12/07/2024 9:19 AM EDT [facility] BUN 20.5 8.0 - 23.0 mg/dL 12/07/2024 9:19 AM EDT [facility] Creatinine 0.74 0.57 - 1.00 mg/dL 12/07/2024 9:19 AM EDT [facility] Sodium 140 136 - 145 mmol/L 12/07/2024 9:19 AM EDT [facility] Potassium 4.7 3.5 - 5.2 mmol/L 12/07/2024 9:19 AM EDT [facility] Chloride 104 98 - 107 mmol/L 12/07/2024 9:19 AM [facility] CO2 28.0 22.0 - 29.0 mmol/L 12/07/2024 9:19 AM T [facility] Calcium 9.3 8.6 - 10.5 mg/dL 12/07/2024 9:19 AM [facility] Total Protein 6.4 6.0 - 8.5 g/dL 12/07/2024 9:19 AM [facility] Albumin 4.5 3.5 - 5.2 g/dL 12/07/2024 9:19 AM [facility] ALT (SGPT) 13 1 - 33 U/L 12/07/2024 9:19 AM [facility] AST (SGOT) 18 1 - 32 U/L 12/07/2024 9:19 AM [facility] Alkaline Phosphatase 85 39 - 117 U/L 12/07/2024 9:19 AM [facility] Total Bilirubin 0.4 0.0 - 1.2 mg/dL 12/07/2024 9:19 AM [facility] Globulin 1.9 gm/dL 12/07/2024 9:19 AM [facility] Comment:Calculated Result A/G Ratio 2.4 g/dL 12/07/2024 9:19 AM [facility] BUN/Creatinine Ratio 27.7(H) 7.0 - 25.0 12/07/2024 9:19 AM [facility] Anion Gap 8.0 5.0 - 15.0 mmol/L 12/07/2024 9:19 AM [facility] eGFR 88.3 >60.0 mL/min/1.7 3 12/07/2024 9:19 AM [facility] Blood Venipuncture / Unknown 12/07/2024 8:21 AM EDT 12/07/2024 8:21 AM T [facility] - 12/07/2024 9:19 AM EDT GFR Categories in Chronic Kidney Disease (CKD) GFR Category GFR (mL/min/1.73) Interpretation G1 90 or greater Normal or high (1) G2 60-89 Mild decrease (1) G3a 45-59 Mild to moderate decrease G3b 30-44 Moderate to severe decrease G4 15-29 Severe decrease G5 14 or less Kidney failure (1)In the absence of evidence of kidney disease, neither GFR category G1 or G2 fulfill the criteria for CKD. eGFR calculation 2020 CKD-EPI creatinine equation, which does not include race as a factor Bijan York MD LAB BLOOD ORDERABLES Final R esult [facility]
[address] [place] [address], * Lipid Panel (02/20/2023 12:20 PM EDT) Total Cholesterol 170 100 - 199 mg/dL [facility] Triglycerides 62 0 - 149 mg/dL [facility] HDL Cholesterol 69 >39 mg/dL [facility] VLDL Cholesterol Josep 12 5 - 40 mg/dL [facility] LDL Chol Calc (NIH) 89 0 - 99 mg/dL [facility] Blood 02/20/2023 12:2 0 PM EDT 02/21/2023 Comment:Blood Release to [facility] rony Galvez [facility]) - 02/21/2023 12:10 PM EDT Performed at: 01 - [facility] [address] [place] [id number] Bung Remover: Carloz Cooper PhD, Phone: [phone] us Shirley Hernandez MD LAB BLOOD ORDERABLES Final Res ult [facility] [address] [place] [address], [place] [phone] [facility] [address] [place] [address], [place] [phone] from Last 3 Months or Most Recently Relevant to Health Maintenance Insurance E [place] [id number] [facility] MEDICARE ADVANTAGE HMO Care Teams High Value Associate Relationship Specialty Start Date End Date Solo Guy MD [address] [place] [address] [address] [place] [address] PCP - General Adolescent Medicine 11/14/22
--- OUTSIDE RECORDS SUMMARY | 2025-02-21 08:48 | XMS_ITS | Clinical Summary ---
Author Organization [facility] Address [address] [place] [address] Care Team Providers Care Auto Locator Name Role Phone Shirley Hernandez MD Unavailable [phone] Solo Guy MD Primary Care Provider [phone] Allergies Active Allergy Reactions Criticality Noted Date [...] 2 sprays into each nostril if needed. 07/22/19 24 Active dapagliflozin (Farxiga) 10 MG tablet Take 1 tablet (10 mg) by mouth daily. 90 tablet 3 08/26/19 25 Active sacubitril-ebenezer sartan (Entresto) 49-51 MG tablet Take 1 tablet by mouth 2 (two) times a day. 180 tablet 3 08/26/19 25 026 Active azelastine (Astelin) 0.1 % nasal spray USE 2 SPRAYS in each nostril AT BEDTIME NEEDED FOR allergic symptoms 04/22/20 24 Active metoprolol succinate XL (Toprol-XL) 25 MG 24 hr tablet Take 1 tablet by mouth daily. 90 tablet 3 09/22/19 25 Active spironolactone (Aldactone) 25 MG tablet Take 1 tablet by mouth daily. 90 tablet 3 09/22/19 25 Active Cyanocobalamin (B12 LIQUID HEALTH BOOSTER PO) Take by mouth daily. Active magnesium aspartate (Maginex) 615 MG EC tablet Take 1 tablet by mouth daily. Active cholecalcifero l (Vitamin D3) 10 MCG (400 UNIT) capsule Take by mouth daily. Active Cholecalcifero l 400 Units/mL oral liquid Take by mouth daily. 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 12/03/2022 Encounters Date Type Department Care Team Description 02/01/2025 3:20 PM EDT Office Visit [facility] [place] [address] [facility], [address] [place] [address] Nila Warner APRN Cardiomyopathy, ischemic (Primary Dx); Chronic systolic HF (heart failure) (CMS/HCC); Coronary artery disease involving [place] coronary artery of [place] heart without angina pectoris 02/01/2025 Travel from Last 3 Months Social History Tobacco [...] Pulse 70 02/01/2025 3:09 PM EDT Temperature 36.5 C (97.7 F) 09/18/2023 10:49 PM EDT Respiratory Rate 18 09/18/2023 10:49 PM EDT Oxygen Saturation 99% 02/01/2025 3:09 PM EDT Inhaled Oxygen Concentration - - Weight 74.6 kg (164 lb 7.4 oz) 02/01/2025 3:09 P M EDT Height 166.4 cm (5' 5.5 ) 02/01/2025 3:09 PM EDT Body Mass Index 26.95 02/01/2025 3:09 PM EDT Plan of Treatment Upcoming Encounters Date Type Department Care Team (Late st Contact Info) Description 08/09/2025 1:20 PM EST Office Visit [facility] [place] [address] [facility], [address] [place] [address] Nila Warner, RESEARCH CONSULTANT [address] [place] [address] Health Maintenance Due Date Last Done Comments [facility]-Bone Density Scan 1955 [facility]-Medicare Annual Wellness (AWV) 1955 [facility]-/Child/Adol SDOH Screenings 1955 [id number] Vaccine (#1) 1961 [facility]- SDOH Screenings 1974 [...] 60-74 years 1-dose series) 2016 [facility]-Influenza Vaccine (#1) 2025 [facility]-Depression Screening 09/21/2025 09/21/2024, 08/29 [facility]-Hepatitis C Screening Completed 09/18/2023 [facility]-Obesity Intervention Completed 025, 09/21/2024, 05/11/2024, Additional history exists HPV Vaccines Aged Out [...] Procedure Name Priority Date/Time Associated Diagnosis Comments HEPATITIS C ANTIBODY - ED W/REFLEX TO HCV QUANT PCR STAT 09/18/2023 6:55 PM EDT from Last 3 Months or Most Recently Relevant to Health Maintenance Results * Hepatitis C Antibody - ED (09/18/2023 6:55 PM EDT) Hepatitis C Antibody Negative Negative 09/18/2023 8:14 PM EDT [facility] Blood Venous blood specimen / Unknown Venipuncture / Unknown 09/18/2023 6:55 PM EDT 09/18/2023 7:34 PM EDT us Maciel Garzon MD LAB BLOOD ORDERABLES Final Res ult [facility] [address] [place] [address] from Last 3 Months or Most Recently Relevant to Health Maintenance Insurance [address] [place] [address] [employer] Care Teams Auto Locator Relationship Specialty Start Date End Date Solo Guy MD [facility] [address] [place] [address] PCP - General Internal Medicine 06/11/23 Shirley Hernandez MD [address] [place] [address] Referring Physician Cardiology 06/09/23
--- OUTSIDE RECORDS SUMMARY | 2025-02-21 08:48 | XMS_ITS | Encounter Summary ---
Author Organization [facility] Address [address] [place] [address] Care Team Providers Care Throat Cutter Name Role Phone Solo Guy MD Primary Care Provider [phone] Encounter Details Date Type Department Care Team (Late st Contact Info) Description 08/19/2013 Conversion Encounter [facility] H[facility]V [address] [place] [address] Interface, See Report Social History Tobacco Use Types Packs/Day Years Used Date Smoking Tobacco: Never Assessed Comments Unknown Sex and Gender Information Value Date Recorded Sex Assigned at Not on file Legal Sex Female 1:38 PM EDT Gender Identity Not on file Sexual Orientation Not on file documented as of this encounter Consult Notes * Interface, See Report - 08/19/2013 2:35 PM EST [facility] CONSULTATION NOTE RE PATIENT: ROBSON KLEIN : 1955 DATE OF CONSULTATION: 08/19/2013 REASON FOR CONSULTATION: Stage IV B-cell lymphoma. REFERRING PHYSICIAN: Dr. Jeremiah Bright NEUROSURGEON: Dr. Refugio Chew PRIMARY CARE DOCTOR: Dr. Shaka Miguel. 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 At that time she was found to have mild to moderate splenomegaly, significant retroperitoneal adenopathy, and mesenteric adenopathy, along with the anterior and middle mediastinal adenopathy, bone marrow involvement for stage PEPE non-Hodgkin's lymphoma. She underwent from October until February 2002 and then was found to have progression of disease in June 2005. She then had therapy reinstated and had a partial response, but had progression of disease again in September 2006. Chemotherapy was reinstated until progressive disease was documented in April 2008. She continued getting chemotherapy until more progression in September 2009. It was reinstated and she continued to do well until noted to have progression of disease in April 2013 and chemotherapy was reinstated. Her most recent progression of disease is in the right infraorbital area. This region was biopsied in [place] [address] Mayers and malignant lymphoma consistent with a follicular center cell or origin small B-cell type was confirmed. This area has at times completely resolved but has now been persistent and from her latest scans is her only site of disease. I have been asked to see her regarding radiotherapy to this region. The CT of 08/10/2013 shows increased subcutaneous soft tissue thickening of the right infraorbital region extending to the medial aspect of the infraorbital rim laterally to the mid-zygomatic region, greatest in thickness along the lateral aspect of the infraorbital rim measuring 11 mm in thickness. This is slightly more prominent compared to 12/13/2012 and has definitely progressed compared to older studies of 11/2011 and 11/2009. This is nonseparable from the inferior aspect of the globe and invasion of the globe could not be included or excluded. MRI was thought to may be of further value. Previously described soft tissue density in the left orbit is not apparent on today's examination. The patient has been evaluated by Dr. Yana Calle regarding radiotherapy, but the patient declined therapy worried about the vision in her right eye. She denies fever, chills, night sweats, or weight loss. CURRENT MEDICATIONS: Medication reconciliation for the patient was reviewed and confirmed in the Electronic Medical Record. ALLERGIES: She has no known drug allergies. HABITS: She occasionally drinks alcohol. She does not smoke or use illicit drugs. 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 PREVENTATIVE: She had a colonoscopy in January 2013. GYNECOLOGIC HISTORY: She underwent menses at 13. Her last menstrual period was age 46. She is 5, para 4, aborta 1. FAMILY HISTORY: Her father has Alzheimer's. REVIEW OF SYSTEMS: There is a complete and thorough review of systems documented in the chart. She only wears corrective lenses. PHYSICAL EXAMINATION: GENERAL: She is a well-developed, well-nourished female in no distress. ECoG score 1. HEENT: Head is normocephalic, atraumatic. Extraocular muscles are intact. Sclerae anicteric. She has an approximately 4 cm indurated mass on the zygomatic infraorbital region on the right. This is about 4 cm. The eye does not appear to be involved. LYMPHATICS: No cervical or supraclavicular lymphadenopathy. LUNGS: Clear to auscultation bilaterally. HEART: Normal S1, S2 with no murmurs, rubs, or gallops. NEUROLOGIC: Cranial nerves II through XII are intact. Muscle strength is +5 out of 5, equal and symmetric. IMPRESSION: The patient has persistent lymphoma in the infraorbital region on the right. RECOMMENDATIONS: We are considering [facility] stereotactic radiosurgery to this region. I will get an MRI with thin cuts to further evaluate the eye and the extent of tumor. We will also ask her to see Dr. Refugio Chew who does cases of neurologic cases with us for stereotactic radiosurgery. Radiosurgery can target this mass and spare critical orbital structures. We talked about the skin could become fibrotic, she could develop some telangiectasia over the right face from treatment, blindness, dry eyes, vision loss, cataracts could be side effects or complications of treatment but she wants to consider this therapy. Stereotactic radiosurgery may be the best option to protect her vision. Thank you very much for allowing me to participate in the care of this very pleasant patient. Sincerely, Manish Ortiz MD* [facility]/magdalena Voice Rec ID: #[id number] Original Voice Rec ID: #[id number] Document ID: #[id number] Rev. #0 cc: Jeremiah Bright M.D.* Refugio Chew M.D.* Shaka Miguel Jr., M.D.* DO NOT TEXT EDIT THIS LINE :ROD WELDER:[id number]: Authenticated by MANISH ORTIZ M.D. On 08/23/2013 09:26:03 AM documented in this encounter Plan of Treatment Upcoming Encounters Date Type Department Care Team (Late st Contact Info) Description 12/06/2025 8:15 AM EDT Office Visit [facility] [address] [facility] [address] [place] [address] Bijan York MD [address] [facility] [address] [place] [address] documented as of this encounter Visit Diagnoses Not on filedocumented in this encounter Care Teams Throat Cutter Relationship Specialty Start Date End Date Solo Guy MD [address] [facility] [address] [place] [address] PCP - General Adolescent Medicine 11/14/22 documented as of this encounter
--- OUTSIDE RECORDS SUMMARY | 2025-02-21 08:49 | XMS_ITS | Encounter Summary ---
Author Organization [facility] Address [address] [place] [address] Care Team Providers Care Retail Sales Associate Bilingual Name Role Phone Shirley Hernandez MD Unavailable [phone] Solo Guy MD Primary Care Provider [phone] Encounter Details Date Type Department Care Team (Latest Contact Info) Description 02/01/2025 Travel Social History Tobacco Use Types Packs/Day Years [...] as of this encounter Functional Status * AUDIT-C Score [...] Marlene Valverde documented as of this encounter Plan of Treatment Upcoming Encounters Date Type Department Care Team (Late st Contact Info) Description 08/09/2025 1:20 PM EST Office Visit [facility] Delano Dublin [address], [address] [place] [address] Nila Warner, TUBING MACHINE OPERATOR [address] [place] [address] documented as of this encounter [...] documented as of this encounter Care Teams Retail Sales Associate Bilingual Relationship Specialty Start Date End Date Solo Guy MD [address] [place] [address] PCP - General Internal Medicine 06/11/23 Shirley Hernandez MD [address] [place] [address] Referring Physician Cardiology 06/09/23 documented as of this encounter
--- OUTSIDE RECORDS SUMMARY | 2025-02-21 08:49 | XMS_ITS | Patient Health Record ---
Author Organization [facility] Address [address] [place] [address] [facility] [address] [place] [address] Care Team Providers Care Decorating Consultant Name Role Phone Shy Lu Primary Care Provider Shaka Miguel Unavailable Unavailable Saskia Marroquin Unavailable [phone] Migration, Provider Unavailable Unavailable Allergies No Known Allergies Results Component Value Reference Range Notes X ray : Ankle, Right Reviewed date:02/27/2024 09:56:44 AM Interpretation: Performing Lab: Notes/Report: X ray : Foot, Right Reviewed date:02/27/2024 09:56:44 AM Interpretation: Performing Lab: Notes/Report: X ray : Foot, Right Reviewed date:02/27/2024 09:56:44 AM Interpretation: Performing Lab: Notes/Report: Rapid Covid/Flu A-B Combo Reviewed date:07/13/2024 01:28:47 PM Interpretation: Performing Lab: Notes/Report: Rapid Covid neg Flu A neg Flu B positive Reason For Referral Reason CT renal mass protoc ol Diagnosis 1 Left renal mass (N28 .89) Referral Organization [facility] JACKELINE DEL VALLE Referring Provider First Name Saskia Referring Provider Last Name Lopez Referring Provider Speciality Family Pra ctice Referred Organization [facility] Referred Address [address] [facility] [address] [facility], [place],[address] Referred Provider Specialty Diagnostic R adiology General Notes Marisabel Brush 2024 03:49:56 PM >Sent to [facility] to schedule Referral Priority Routine Reason [facility] mammogram Diagnosis 1 Visit for screening mammogram (Z12.31) Referral Organization [facility] JACKELINE DEL VALLE Referring Provider First Name Saskia Referring Provider Last Name Lopez Referring Provider Speciality Family Pra ctice Referred Organization [facility] Referred Address [address] [place] [facility] [address] [facility], [place] Referred Provider Specialty Diagnostic R adiology General Notes Marisabel Brush 2024 03:29:17 PM >sent to [facility] to schedule Referral Priority Routine Medications Medication SIG (Take, Route, Frequency, Duration) Notes Start Date End Date Status Magnesium Glycinate Advanced 120 MG as directed Orally Active Entresto 49-51 MG 1 tab(s) orally 2 ti mes a day Active Spironolactone 25 MG 1 tab(s) orally onc e a day Active Vitamin D3 50 MCG (1999) 1 capsule Or ally Once a day Active Metoprolol Tartrate 25 MG 1 tablet Orally daily Active Montelukast Sodium 10 MG 1 tab(s) orally once a day; Duration: 90 days 09/23/2022 Active Symbicort 160-4.5 MCG/ACT 2 puff(s) inha led 2 times a day; Duration: 30 days 09/23/2022 Active Farxiga 10 MG 1 tab(s) orally once a day Active Aspirin 81 MG 1 tab(s) orally once a day Active Social History Tobacco Use: Social History Observation Description Date Details (start date - stop date) Never Smoker NA - NA Smoking: Question Answer Notes Are you a: nonsmoker Problems Problem Type SNOMED Code ICD Code Onset Dates Problem Status W/U Status Risk Notes Problem Overweight (685050238) Overweight (E66.3) Active confirmed Problem Vitamin D deficiency (13142336) Vitamin D deficiency (E55.9) Active confirmed Problem Atherosclerotic hear t disease of [place] coronary artery without angina pectoris (037213938066875) Coronary artery disease involving [place] coronary artery of [place] heart without angina pectoris (I25.10) Active confirmed Problem Uncomplicated moderate persistent asthma (831384936) Moderate persistent asthma without complication (J45.40) Active confirmed Problem History of malignant basal cell tumor of skin (110653685) History of basal cell cancer (Z85.828) Active confirmed Problem Pure hypercholesterolemia (419578368) Pure hypercholesterolemia (E78.00) Active confirmed Problem Exacerbation of moderate persistent asthma (disorder) (045157483) Moderate persistent asthma with exacerbation (J45.41) Active confirmed Problem Disorder of kidney and/or ureter (897606716) Left renal mass (N28.89) Active confirmed Problem Chronic cough (89153379) Chronic cough (R05.3) Active confirmed Problem History of lymphoma (418352945) History of lymphoma (Z85.72) Active confirmed Vital Signs Heart Rate 72 /min 02/10/2025 Temperature 97.3 degrees Fahrenheit 02/10/2025 Blood pressure diastolic 86 mm Hg 02/10/2025 Height 65.5 in 02/10/2025 Blood pressure systolic 132 mm Hg 02/10/2025 Weight 165 lbs 02/10/2025 BMI 27.04 kg/m2 02/10/2025 Encounters Encounter Location Date Provider Diagnosis [facility] [address] [place] [address] 10/02/2024 Provider Migration Moderate persistent asthma with exacerbation J45.41 [facility] [address] [place] [address] 02/26/2024 Saskia McNees Acute right ankle pa in M25.571 and Acute pain of right foot M79.671 [facility] [address] [place] [address] 07/13/2024 Saskia McNees Cough R05.9 ; Modera te persistent asthma with exacerbation J45.41 and Influenza B J10.1 [facility] [address] [place] [address] 12/21/2024 Saskia McNees Moderate persistent asthma with exacerbation J45.41 [facility] [address] [place] [address] 02/10/2025 Saskia McNees Coronary artery dise ase involving [place] coronary artery of [place] heart without angina pectoris I25.10 ; Medicare annual wellness visit, subsequent Z00.00 ; History of lymphoma Z85.72 ; Moderate persistent asthma without complication J45.40 ; Pure hypercholesterolemia E78.00 ; Visit for screening mammogram Z12.31 ; History of basal cell cancer Z85.828 ; Overweight E66.3 ; Body mass index [BMI] 27.0-27.9, adult Z68.27 ; Left renal mass N28.89 and Vitamin D deficiency E55.9 [facility] [address] [place] [address] 02/26/2024 Saskia McNees [facility] [address] [place] [address] 05/07/2024 Saskia McNees [facility] [address] [place] [address] 11/18/2024 Shy Lu Moderate persistent asthma with exacerbation J45.41 [facility] [address] [place] [address] 01/06/2025 Shy Zunigaence [facility] [address] [place] [address] 01/07/2025 Saskia McNees [facility] [address] [place] [address] 02/10/2025 Saskia McNees [facility] [address] [place] [address] 02/10/2025 Saskia McNees Left renal mass N28. 89 [facility] [address] [place] [address] 02/16/2025 Saskia McNees [facility] [address] [place] [address] 02/16/2025 Saskia McNees History of lymphoma Z85.72 ; Pure hypercholesterolemia E78.00 ; Coronary artery disease involving [place] coronary artery of [place] heart without angina pectoris I25.10 and Vitamin D deficiency E55.9 Assessments Encounter Date Diagnosis (ICD Code) Assessment Notes Treatment Notes Treatment Clinical Notes Section Notes 02/26/2024 Acute right ankle pa in (ICD-10 - M25.571) Rest, Ice, brace, elevate. FU in office in 2-3 weeks if symptoms persist 02/26/2024 Acute pain of right foot (ICD-10 - M79.671) 07/13/2024 Moderate persistent asthma with exacerbation (ICD-10 - J45.41) Discussed the etiology and expected course of asthma exacerbation. Discussed the rationale for antibiotics and steroid use and the importance of completing the prescription as prescribed. Discussed supportive care. Discussed the signs and symptoms of worsening infection/respi ratory distress that may indicate need for reassessment in clinic/ED. 07/13/2024 Cough (ICD-10 - R05.9) 10/02/2024 Moderate persistent asthma with exacerbation (ICD-10 - J45.41) 11/18/2024 Moderate persistent asthma with exacerbation (ICD-10 - J45.41) 12/21/2024 Moderate persistent asthma with exacerbation (ICD-10 - J45.41) Discussed the etiology and expected course of asthma exac and likely bronchopneumoni a. Discussed the rationale for antibiotics and steroid use and the importance of completing the prescription as prescribed. Discussed supportive care. Discussed the signs and symptoms of worsening infection/respi ratory distress that may indicate need for reassessment in clinic/ED. 02/10/2025 Coronary artery dise ase involving [place] coronary artery of [place] heart without angina pectoris (ICD-10 - I25.10) [...] Not a smoker. Declines pneumonia vaccine 02/10/2025 Left renal mass (ICD -10 - N28.89) 02/16/2025 Pure hypercholesterolemia (ICD-10 - E78.00) 02/16/2025 History of lymphoma (ICD-10 - Z85.72) 02/10/2025 History of lymphoma (ICD-10 - Z85.72) Keep FU with oncology 07/13/2024 Influenza B (ICD-10 - J10.1) Out of treatment window for tamiflu, see plan above 02/16/2025 Coronary artery dise ase involving [place] coronary artery of [place] heart without angina pectoris (ICD-10 - I25.10) 02/10/2025 Moderate persistent asthma without complication (ICD-10 - J45.40) Well controlled on symbicort, no changes made today 02/16/2025 Vitamin D deficiency (ICD-10 - E55.9) 02/10/2025 Pure hypercholesterolemia (ICD-10 - E78.00) See [...] and treat as indicated Plan Of Treatment Pending Test Test Name Order Date Mammogram : Bilateral 02/10/2025 CT Scan : Renal mass with contrast 02/10 LIPID PANEL, STANDARD (7600) 02/16/2025 COMPREHENSIVE METABOLIC PANEL (84765) BUN/CREATININE RATIO (296) 10/06/2023 CBC (INCLUDES DIFF/PLT) (6399) 5 VITAMIN D,25-OH,TOTAL,IA (85550) 025 CULTURE, URINE, ROUTINE (395) 07/11/2023 CT ABD WOW 02/10/2025 Insurance Providers Payer Name Payer Address Payer Phone Subscriber Number Group Number Insured Name Patient Relationship to Insured Coverage Start Date Coverage End Date [employer] HMO [address] [address] [place] [address] [id number] Robson Abrams Self - patient is the insured Medications Administered Medication Instructions Date of Administration Dosage Notes Dexamethasone 4mg Injection 07/13/2024 4 mg Dexamethasone 4mg Injection 12/21/2024 4 mg Medical (General) History Medical History History ICD Code CAD s/p stenting 2022 in [facility] Non-hodgkins lymphoma Asthma Surgical History Surgery Date(Month/Year) Heart Attack-one stent cyper knife-rt eye 2013 Hospitalization History Reason Date(Month/Year) Child brith x 4 Heart Attack
== END 2025-02-21 23:59 ==
LOC: RAD 08:44
PROVIDERS: PCP Internal Medicine Adolescent Medicine; Visit Provider Nurse Practitioner Family
DX: Z12.31 Encounter for screening mammogram for malignant neoplasm of breast (principal)
CPT/HCPCS: 77063; 77067